=== PATIENT | female | born 1955 | race Caucasian/White ===

== ENCOUNTER 2018-11-12 00:58 | Outpatient (CLI) | payer MEDICARE, SELFPAY ==
--- NOTE | 2018-11-12 13:36 | DI.MAMMO_ITS ---
SYMPTOM/DIAGNOSIS: SCREENING, Z12.39 MAMMOGRAMS: Mammograms were interpreted according to the usual protocol including computer analysis with CAD system, tomosynthesis and C view imaging. No previous images were extant at the time of this interpretation. Requested but no images found. The breast tissue is heterogeneously radiodense which lowers the sensitivity of the study. There is no dominant mass. There are no suspicious calcifications. SUMMARY: No evidence of malignancy, category 1. Breast density, Category C. Routine screening mammography is recommended. [facility] ASSESSMENT OF FINDINGS: Negative. Category 1. Patient will receive a letter notifying them of these results. Bi-RADS category C. The breasts are heterogeneously dense, which may obscure small masses.
== END 2018-11-12 01:18 ==
PROVIDERS: PCP Nurse Practitioner Family; Visit Provider Nurse Practitioner Family
DX: Z12.31 Encounter for screening mammogram for malignant neoplasm of breast (principal)
CPT/HCPCS: 77063; 77067

== ENCOUNTER 2018-11-17 11:32 | Outpatient (REF) | payer MEDICARE, SELFPAY ==
[2018-11-17 12:12] LABS: Anion Gap 9.3 mmol/L (3-11); BUN 26 mg/dL (7-18); CO2 25.7 mmol/L (21.0-32.0); CREATININE 0.95 mg/dL (0.55-1.02); Calcium 9.5 mg/dL (8.5-10.1); Chloride 105 mmol/L (98-107); Estimated GFR 59.04 (mL/min/1.73m2); Glucose 142 mg/dL (70-100); Potassium 4.5 mmol/L (3.5-5.1); Sodium 140 mmol/L (136-145)
[2018-11-17 16:21] LABS: Calculated LDL 45 mg/dL; Cholesterol 126 mg/dL (50-200); HDL Cholesterol 34 mg/dL (40-60); Triglyceride 239 mg/dL (30-150)
== END 2018-11-17 11:52 ==
LOC: NCHCN 11:32
PROVIDERS: PCP Nurse Practitioner Family; Visit Provider Nurse Practitioner Family
DX: E78.5 Hyperlipidemia, unspecified (principal); I10 Essential (primary) hypertension; N18.9 Chronic kidney disease, unspecified
CPT/HCPCS: 80048; 80061

== ENCOUNTER → 2018-12-14 09:08 | Outpatient (BNVA) | payer MEDICARE, SELFPAY | PROVIDERS: PCP Nurse Practitioner Family; Referring Provider Nurse Practitioner Family; Visit Provider Nurse Practitioner Adult Health | DX: G43.009 Migraine without aura, not intractable, without status migrainosus (principal); I12.9 Hypertensive chronic kidney disease with stage 1 through stage 4 chronic kidney disease, or unspecified chronic kidney disease; E11.22 Type 2 diabetes mellitus with diabetic chronic kidney disease; N18.9 Chronic kidney disease, unspecified; Z79.84 Long term (current) use of oral hypoglycemic drugs | CPT/HCPCS: 99204 ==

== ENCOUNTER → 2019-01-11 12:56 | Outpatient (BNVA) | payer MEDICARE, SELFPAY | PROVIDERS: PCP Nurse Practitioner Family; Referring Provider Nurse Practitioner Family; Visit Provider Nurse Practitioner Adult Health | DX: G43.009 Migraine without aura, not intractable, without status migrainosus (principal); I10 Essential (primary) hypertension; J45.909 Unspecified asthma, uncomplicated | CPT/HCPCS: 99213 ==

== ENCOUNTER 2019-02-15 14:00 | Outpatient (REF) | payer MEDICARE, SELFPAY ==
[2019-02-15 19:48] LABS: HCT 40.1 % (36.0-46.0); HGB 13.2 g/dL (12.0-15.5); Mean Corp. HGB Concentration 32.9 g/dL (32.0-36.0); Mean Corpuscular Volume 91.1 fL (80-95); Mean Platelet Volume 11.4 fL (8.0-11.0); Platelet Count 316 x1000/uL (130-400); RBC Distribution Width 14.4 % (11.7-14.6); White Blood Cell Count 9.58 k/cumm (4.4-10.8)
[2019-02-15 20:06] LABS: ALT 27 U/L (14-59); AST 29 U/L (15-37); Albumin 4.2 g/dL (3.4-5.0); Alkaline Phosphatase 99 U/L (46-116); Anion Gap 15.2 mmol/L (3-11); BUN 25 mg/dL (7-18); Bilirubin, Total 0.5 mg/dL (0.2-1.0); CO2 22.8 mmol/L (21.0-32.0); CREATININE 1.03 mg/dL (0.55-1.02); Calcium 10.1 mg/dL (8.5-10.1); Chloride 102 mmol/L (98-107); Estimated GFR 53.78 (mL/min/1.73m2); Glucose 176 mg/dL (74-106); Potassium 4.5 mmol/L (3.5-5.1); Sodium 140 mmol/L (136-145); Total Protein 7.4 g/dL (6.4-8.2)
== END 2019-02-15 14:20 ==
LOC: NCHCN 14:00
PROVIDERS: PCP Nurse Practitioner Family; Visit Provider Nurse Practitioner
DX: R31.9 Hematuria, unspecified (principal)
CPT/HCPCS: 80053; 85027

== ENCOUNTER 2019-02-16 18:37 | Outpatient (REF) | payer MEDICARE, SELFPAY ==
[2019-02-16 19:18] LABS: Bilirubin Negative (Negative); Blood Large (Negative); Clarity Cloudy (Clear); Glucose Negative (Negative); Ketones Negative (Negative); Leukocyte Esterase Negative (Negative); Nitrite Negative (Negative); Urobilinogen 0.2 EU/dL (Up TO 0.2)
[2019-02-16 19:41] LABS: Bacteria Negative HPF (Negative); C & S Indicated? No; Epithelial Cells Negative HPF (Negative); Mucus Negative (Negative); WBC Negative HPF (0-5)
== END 2019-02-16 18:57 ==
LOC: NCHCN 18:37
PROVIDERS: PCP Nurse Practitioner Family; Visit Provider Nurse Practitioner Family
DX: R31.9 Hematuria, unspecified (principal)
CPT/HCPCS: 81003; 81015

== ENCOUNTER 2019-02-26 03:16 | Outpatient (CLI) | payer MEDICARE, SELFPAY ==
--- NOTE | 2019-02-26 12:43 | DI.US_ITS ---
EXAM: US RENAL CLINICAL HISTORY: HEMATURIA R31.9, HX RENAL CALCULUS Z87.442 TECHNIQUE: Ultrasound performed using standard protocol. COMPARISON: XR ABDOMEN FLAT PLATE from 02/26/2019 FINDINGS: Kidneys are normal in size and shape. There is no evidence of hydronephrosis. There is probable rig ht renal upper pole calculus which is nonobstructing. No left renal calcification seen. Urinary hermelinda dder is unremarkable in appearance and empties completely with voiding. Ureteral jets were not visua lized. IMPRESSION: Right upper pole nonobstructing renal calculus. Examination is otherwise unremarkable. Calculus luz ears to measure about 4-5 millimeters in diameter.
--- NOTE | 2019-02-26 13:14 | DI.RAD_ITS ---
EXAM: XR ABDOMEN FLAT PLATE CLINICAL HISTORY: HEMATURIA R31.9, HX RENAL CALCULUS Z87.442 TECHNIQUE: COMPARISON: No exams were available for comparison FINDINGS: Three views were obtained. No definite urinary tract calcifications seen. Bowel gas pattern is unre markable. No other specific abnormality. IMPRESSION:
== END 2019-02-26 03:36 ==
PROVIDERS: PCP Nurse Practitioner Family; Visit Provider Nurse Practitioner Family
DX: R31.9 Hematuria, unspecified (principal); Z87.442 Personal history of urinary calculi; N20.0 Calculus of kidney
CPT/HCPCS: 76770; 74018

== ENCOUNTER → 2019-04-14 10:56 | Outpatient (BNVA) | payer MEDICARE, SELFPAY | PROVIDERS: PCP Nurse Practitioner Family; Referring Provider Nurse Practitioner Family; Visit Provider Nurse Practitioner Adult Health | DX: G43.009 Migraine without aura, not intractable, without status migrainosus (principal) | CPT/HCPCS: 99213 ==

== ENCOUNTER 2019-10-15 08:17 | Day surgery (SDC) | payer MEDICARE, SELFPAY ==
[2019-10-15 08:25] VITALS: BP 156/66; PULSE 72; RESP 18; TEMP 36.4; O2SAT 98
[2019-10-15] MEDS: Lidocaine 1% Pres-Free 5 ML VIAL (09:39)
[2019-10-15] MEDS: Povidone-Iodine Ophth 30 ML BTL (09:39)
[2019-10-15] MEDS: Tetracaine 0.5% 4 ML BTL OS (09:39)
[2019-10-15] MEDS: Lidocaine 2% Jelly 6 ML SYR (09:39)
[2019-10-15] MEDS: Balanced Salt Soln.-PLUS 500 ML BAG (09:43)
[2019-10-15] MEDS: Moxifloxacin-PF 1 MG/ML VIAL (09:48)
--- NOTE | 2019-10-15 10:10 | W.PM.DSUDISC ---
Discharge Plan Disposition Patient Disposition: HOME Condition: Good Discharge Details Attending Provider: Shravan Russo Primary Care Provider: Shahla Poole Home Meds and New Rx's Prescriptions: No Action aspirin 325 mg tablet 325 mg PO DAILY PRNRF: 0 acetaminophen [Tylenol] 325 mg tablet 325 mg PO ONCE PRNRF: 0 Lantus U-100 Insulin 100 unit/mL solution 82 unit SC QHS RF: 0 amitriptyline 50 mg tablet 50 mg PO QHS Qty: 90 RF: 3 atorvastatin 40 mg tablet 40 mg PO DAILY RF: 0 cyclobenzaprine 10 mg tablet 10 mg PO HS RF: 0 citalopram 40 mg tablet 40 mg PO DAILY RF: 0 cholecalciferol (vitamin D3) 5,000 unit capsule 5,000 unit PO DAILY RF: 0 albuterol sulfate 90 mcg/actuation HFA aerosol inhaler 2 puff IH QID RF: 0 omeprazole 20 mg capsule,delayed release(DR/EC) 20 mg PO DAILY RF: 0 metformin 1,000 mg tablet 1,000 mg PO BID RF: 0 losartan 100 mg tablet 100 mg PO DAILY RF: 0 cetirizine 10 mg capsule 10 mg PO DAILY PRNRF: 0 bisoprolol fumarate 10 mg tablet 10 mg PO DAILY RF: 0 amlodipine 10 mg tablet 10 mg PO DAILY RF: 0 alendronate 70 mg tablet 70 mg PO QWEEK RF: 0 melatonin 5 mg tablet 5 mg PO HS PRNRF: 0 Discharge Instructions Stand Alone Forms: Post-op Topical Cataract, Shruthi Ganey (DSU) Discharge Orders Discharge Orders: Discharge Order (Routine); Ordered 10/15/19 Ordered By: Shravan Russo DS: Diagnosis Discharge Diagnosis (1) Papilloma of left eyelid: Status: Resolved (2) Nuclear sclerotic cataract of left eye: Status: Resolved
--- NOTE | 2019-10-15 10:11 | W.PM.OP ---
Date of service: 10/15/19 Time of Service: 10:11 Operative Note Operative Note DATE OF PROCEDURE: 10/15/19 PRE-OP DIAGNOSIS: Nuclear cataract, left eye; left lower lid papilloma x 3 POST-OP DIAGNOSIS: same PROCEDURE: Cataract extraction using phacoemulsification with intraocular lens implant, left eye SURGEON: Shravan Russo ANESTHESIA: MAC and local (sub-tenon's anesthetic infiltration) PATHOLOGY: none sent COMPLICATIONS: None Patient was transported to: same day Patient's condition: stable Implants: Nathanael and Nathanael Vision / [employer] Tecnis [id number] Indications: Progressive decreased vision due to cataract, left eye. Multiple left lower lid papillomas Procedure Description: CATARACT SURGERY OPERATIVE REPORT PREOPERATIVE DIAGNOSIS: 1. Nuclear cataract, left eye 2. Papilloma x3, left lower lid POSTOPERATIVE DIAGNOSIS: Same OPERATION: Cataract extraction using phacoemulsification with posterior chamber intraocular lens implant, left eye. Excision of multiple papillomas, left lower lid IOL: IOL Tentmaker/Model: [employer] Vision / MELVI Tecnis ZCB00 IOL Power: + 15.5 diopters IOL Serial Number: [id number] Optic Diameter: 6.0mm Haptic/Overall Diameter: 13.0mm PHACO INFO: Liborio Centurion Vision System with OZil and Active Fluidics Cumulative Dispersed Energy (CDE): 9.76 seconds SURGEON: Shravan Russo MD, SAM ANESTHESIA: Monitored Anesthesia Care (MAC), with local sub-tenon's anesthetic infiltration COMPLICATIONS: None SPECIMENS: None INDICATIONS FOR PROCEDURE: The patient is a 64-year-old lady with history of diminished visual acuity in her left eye. She is noted to have a significant nuclear cataract. The option of cataract surgery was offered to the patient and she wished to proceed. In addition, she has multiple papillomas involving the right lower lid and lateral canthus that she desires excision. They be have become very bothersome with pain and soreness. PROCEDURE: The correct surgical eye was identified and marked as the left eye and the pupil was dilated in the preoperative area using mydriatics and cycloplegics. The dilated pupil size was 6.5 mm. Oral sedation was administered in the form of an Imprimis MKO Melt (midazolam 3mg/ketamine 25mg/ondansetron 2mg). The patient was brought to the operating room where cardiopulmonary monitoring was instituted and surgical time-out was performed, confirming the correct operative eye and IOL power. 1 cc of 1% plain lidocaine was injected into the left lower lid and lateral canthus using a 30-gauge needle. Topical anesthesia was administered and ophthalmic povidone-iodine 5% was instilled into the conjunctival fornices. Lidocaine gel was applied to the cornea and the levi-ocular area was prepped with Betadine 10% solution and draped in the usual sterile fashion for intraocular surgery, including an aperture drape. A Tegaderm transparent film dressing was cut in half and used to cover the lashes and lid margins. Care was taken to sequester the lashes and lid margins under the Tegaderm dressing. A lid speculum was placed between the lids of the operative eye and the Soledad-Ina operating microscope was maneuvered into position. Walter scissors were then used to make a conjunctival buttonhole approximately 6mm posterior to the limbus in the inferonasal quadrant. Blunt dissection was carried out to expose bare sclera, and a blunt-tipped sub-tenon?s anesthesia cannula was introduced and passed posteriorly along the globe where non-preserved plain lidocaine was injected into posterior sub-Tenon?s space. A sideport knife was used to make a paracentesis port superior/superiortemporally. Intraocular phenylephrine/lidocaine was injected into the anterior chamber. The anterior chamber was then filled with Healon Pro. A 2.4mm keratome knife was used to create a half-thickness groove at the limbus and then to construct a three-plane near-clear corneal tunnel extending 2.0mm into clear cornea in the temporal position. . A flap was raised on the anterior capsule and capsulorhexis forceps were used to complete a continuous curvilinear capsulorhexis of 5.0 mm. Balanced salt solution was then used to perform cortical cleaving hydrodissection and nuclear hydrodelineation until the lens could be freely rotated within the capsular bag. The lens nucleus was then disassembled and removed within the capsular bag and iris plane using phacoemulsification. Residual cortical material was removed using the 45-degree angled silicone I/A tip with 0.3mm port. The posterior capsule was carefully polished to remove as much residual lens epithelial cells as safely possible. The capsular bag was then inflated and the anterior chamber deepened with viscoelastic. The lens implant described above was inserted into the capsular bag using the MELVI [place] Injector. A Kuglen hook was used to dial the IOL into position. Residual viscoelastic was then removed first from posterior to the IOL, then from the anterior chamber using the I/A handpiece. The lens implant was noted to center nicely within the capsular bag. The incisions were stromally hydrated, and the anterior chamber was reformed using BSS. Then 0.5cc of moxifloxacin 1.0mg/ml were injected into the capsular bag and anterior chamber. The incisions were checked with a Weck spear and found to be secure. Several drops of ophthalmic povidone-iodine 5% were then applied to the eye followed by two drops of Imprimis combination prednisolone/moxifloxacin/nepafenac solution. The drapes were removed. A #15 blade was used to outline the papillomas, which were then excised using forceps and Ni scissors. A total of 3 papillomas were removed, one centrally in the left lower lid, 1 laterally on the left lower leg, and 1 at the left lateral canthus. All were approximately 2 to 3 mm in size. A gauze pad was applied. And a clear plastic protective eye shield was placed over the eye. The patient was then returned to Same Day Surgery in stable condition.
[2019-10-15 10:36] VITALS: BP 115/50; PULSE 77; RESP 16; TEMP 35.8; O2SAT 93
== END 2019-10-15 10:59 | disposition home or self-care (01) ==
PROVIDERS: PCP Nurse Practitioner Family; Visit Provider Ophthalmology
PROC: (CPT 66984; principal; 2019-10-15 10:30)
DX: H25.12 Age-related nuclear cataract, left eye (principal); D23.122 Other benign neoplasm of skin of left lower eyelid, including canthus
CPT/HCPCS: 66984; 67840 ×3; V2632

== ENCOUNTER 2019-10-29 08:21 | Day surgery (SDC) | payer MEDICARE, SELFPAY ==
[2019-10-29 08:25] VITALS: BP 149/60; PULSE 76; RESP 16; TEMP 36.6; O2SAT 98
--- NOTE | 2019-10-29 08:46 | W.PM.DSUDISC ---
Discharge Plan Disposition Patient Disposition: HOME Condition: Good Discharge Details Attending Provider: Shravan Russo Primary Care Provider: Shahla Poole Home Meds and New Rx's Prescriptions: No Action aspirin 325 mg tablet 325 mg PO DAILY PRNRF: 0 acetaminophen [Tylenol] 325 mg tablet 325 mg PO ONCE PRNRF: 0 Lantus U-100 Insulin 100 unit/mL solution 82 unit SC QHS RF: 0 amitriptyline 50 mg tablet 50 mg PO QHS Qty: 90 RF: 3 atorvastatin 40 mg tablet 40 mg PO DAILY RF: 0 cyclobenzaprine 10 mg tablet 10 mg PO HS RF: 0 citalopram 40 mg tablet 40 mg PO DAILY RF: 0 cholecalciferol (vitamin D3) 5,000 unit capsule 5,000 unit PO DAILY RF: 0 albuterol sulfate 90 mcg/actuation HFA aerosol inhaler 2 puff IH QID RF: 0 omeprazole 20 mg capsule,delayed release(DR/EC) 20 mg PO DAILY RF: 0 metformin 1,000 mg tablet 1,000 mg PO BID RF: 0 losartan 100 mg tablet 100 mg PO DAILY RF: 0 cetirizine 10 mg capsule 10 mg PO DAILY PRNRF: 0 bisoprolol fumarate 10 mg tablet 10 mg PO DAILY RF: 0 amlodipine 10 mg tablet 10 mg PO DAILY RF: 0 alendronate 70 mg tablet 70 mg PO QWEEK RF: 0 melatonin 5 mg tablet 5 mg PO HS PRNRF: 0 Discharge Instructions Stand Alone Forms: Post-op Topical Cataract, Shruthi Giordanoey (DSU) Discharge Orders Discharge Orders: Discharge Order (Routine); Ordered 10/29/19 Ordered By: Shravan Russo DS: Diagnosis Discharge Diagnosis (1) Nuclear sclerotic cataract of right eye: Status: Resolved
[2019-10-29] MEDS: Tetracaine 0.5% 4 ML BTL OD (09:39)
[2019-10-29] MEDS: Balanced Salt Soln.-PLUS 500 ML BAG (09:40)
[2019-10-29] MEDS: Lidocaine 2% Jelly 6 ML SYR (09:41)
[2019-10-29] MEDS: Moxifloxacin-PF 1 MG/ML VIAL (09:41)
[2019-10-29] MEDS: Lidocaine 1% Pres-Free 5 ML VIAL (09:41)
[2019-10-29] MEDS: Povidone-Iodine Ophth 30 ML BTL (09:42)
--- NOTE | 2019-10-29 10:03 | W.PM.OP ---
Date of service: 10/29/19 Time of Service: 10:03 Operative Note Operative Note DATE OF PROCEDURE: 10/29/19 PRE-OP DIAGNOSIS: Nuclear cataract, right eye POST-OP DIAGNOSIS: same PROCEDURE: Cataract extraction using phacoemulsification with intraocular lens implant, right eye SURGEON: Shravan Russo ANESTHESIA: MAC and local (sub-tenon's anesthetic infiltration) ESTIMATED BLOOD LOSS: 0 PATHOLOGY: none sent COMPLICATIONS: None Patient was transported to: same day Patient's condition: stable Implants: Nathanael and Nathanael Vision / [employer] Tecnis ZCB00 intraocular lens Indications: Progressive decreased vision due to cataract, right eye Procedure Description: CATARACT SURGERY OPERATIVE REPORT PREOPERATIVE DIAGNOSIS: Nuclear cataract, right eye POSTOPERATIVE DIAGNOSIS: Same OPERATION: Cataract extraction using phacoemulsification with posterior chamber intraocular lens implant, right eye. IOL: IOL Housecalls Nurse/Model: J&J Vision / MELVI Tecnis ZCB00 IOL Power: + 16.0 diopters IOL Serial Number: [id number] Optic Diameter: 6.0mm Haptic/Overall Diameter: 13.0mm PHACO INFO: Liborio [employer]urion Vision System with OZil and Active Fluidics Cumulative Dispersed Energy (CDE): 10.70 seconds SURGEON: Shravan Russo MD, SAM ANESTHESIA: Monitored Anesthesia Care (MAC), with local sub-tenon's anesthetic infiltration COMPLICATIONS: None SPECIMENS: None INDICATIONS FOR PROCEDURE: The patient is a 64-year-old lady with history of diminished visual acuity in both eyes secondary to the development of bilateral nuclear cataract. She has already undergone cataract surgery in her left eye and is doing well postoperatively. She now presents for cataract surgery in the right eye. PROCEDURE: The correct surgical eye was identified and marked as the right eye and the pupil was dilated in the preoperative area using mydriatics and cycloplegics. The dilated pupil size was 7.0 mm. Oral sedation was administered in the form of an Imprimis MKO Melt (midazolam 3mg/ketamine 25mg/ondansetron 2mg). The patient was brought to the operating room where cardiopulmonary monitoring was instituted and surgical time-out was performed, confirming the correct operative eye and IOL power. Topical anesthesia was administered and ophthalmic povidone-iodine 5% was instilled into the conjunctival fornices. Lidocaine gel was applied to the cornea and the levi-ocular area was prepped with Betadine 10% solution and draped in the usual sterile fashion for intraocular surgery, including an aperture drape. A Tegaderm transparent film dressing was cut in half and used to cover the lashes and lid margins. Care was taken to sequester the lashes and lid margins under the Tegaderm dressing. A lid speculum was placed between the lids of the operative eye and the Soledad-Ina operating microscope was maneuvered into position. Walter scissors were then used to make a conjunctival buttonhole approximately 6mm posterior to the limbus in the inferonasal quadrant. Blunt dissection was carried out to expose bare sclera, and a blunt-tipped sub-tenon?s anesthesia cannula was introduced and passed posteriorly along the globe where non-preserved plain lidocaine was injected into posterior sub-Tenon?s space. A sideport knife was used to make a paracentesis port inferiortemporally. Intraocular phenylephrine/lidocaine was injected into the anterior chamber. The anterior chamber was then filled with Healon Pro. A 2.4mm keratome knife was used to create a half-thickness groove at the limbus and then to construct a three-plane near-clear corneal tunnel extending 2.0mm into clear cornea in the superiortemporal position. . A flap was raised on the anterior capsule and capsulorhexis forceps were used to complete a continuous curvilinear capsulorhexis of 5.0 mm. Balanced salt solution was then used to perform cortical cleaving hydrodissection and nuclear hydrodelineation until the lens could be freely rotated within the capsular bag. The lens nucleus was then disassembled and removed within the capsular bag and iris plane using phacoemulsification. Residual cortical material was removed using the I/A handpiece. The posterior capsule was carefully polished to remove as much residual lens epithelial cells as safely possible. The capsular bag was then inflated and the anterior chamber deepened with viscoelastic. The lens implant described above was inserted into the capsular bag using the MELVI [place] Injector. A Kuglen hook was used to dial the IOL into position. Residual viscoelastic was then removed first from posterior to the IOL, then from the anterior chamber using the I/A handpiece. The lens implant was noted to center nicely within the capsular bag. The incisions were stromally hydrated, and the anterior chamber was reformed using BSS. Then 0.5cc of moxifloxacin 1.0mg/ml were injected into the capsular bag and anterior chamber. The incisions were checked with a Weck spear and found to be secure. Several drops of ophthalmic povidone-iodine 5% were then applied to the eye followed by two drops of Imprimis combination prednisolone/moxifloxacin/nepafenac solution. The drapes were removed and a clear plastic protective eye shield was placed over the eye. The patient was then returned to Same Day Surgery in stable condition.
[2019-10-29 10:20] VITALS: BP 149/70; PULSE 73; RESP 18; TEMP 36.1; O2SAT 99
== END 2019-10-29 10:35 | disposition home or self-care (01) ==
PROVIDERS: PCP Nurse Practitioner Family; Visit Provider Ophthalmology
PROC: (CPT 66984; principal; 2019-10-29 10:30)
DX: H25.11 Age-related nuclear cataract, right eye (principal); Z96.1 Presence of intraocular lens; Z98.42 Cataract extraction status, left eye
CPT/HCPCS: 66984; V2632

== ENCOUNTER 2020-01-05 13:09 | Outpatient (REF) | payer MEDICARE, SELFPAY ==
[2020-01-05 19:46] LABS: Anion Gap 12.4 mmol/L (3-11); BUN 17 mg/dL (7-18); CO2 22.6 mmol/L (21.0-32.0); Calcium 9.6 mg/dL (8.5-10.1); Chloride 104 mmol/L (98-107); Estimated GFR 49.69 (mL/min/1.73m2); Glucose 233 mg/dL (74-106); Potassium 4.3 mmol/L (3.5-5.1); Sodium 139 mmol/L (136-145)
== END 2020-01-05 13:29 ==
LOC: NCHCN 13:09
PROVIDERS: PCP Nurse Practitioner Family; Visit Provider Nurse Practitioner Family
DX: N18.9 Chronic kidney disease, unspecified (principal)
CPT/HCPCS: 80048

== ENCOUNTER → 2020-04-12 12:58 | Outpatient (BNVA) | payer MEDICARE, SELFPAY | PROVIDERS: PCP Nurse Practitioner Family; Referring Provider Nurse Practitioner Family; Visit Provider Nurse Practitioner Adult Health | DX: G43.009 Migraine without aura, not intractable, without status migrainosus (principal); G89.29 Other chronic pain; G62.9 Polyneuropathy, unspecified | CPT/HCPCS: 99213 ==

== ENCOUNTER 2021-01-18 10:18 | Outpatient (REF) | payer MEDICARE, SELFPAY ==
[2021-01-18 17:03] LABS: Hemoglobin A1C 8.8 % (<5.7)
[2021-01-18 17:07] LABS: ALT 29 U/L (14-59); AST 24 U/L (15-37); Albumin 4.1 g/dL (3.4-5.0); Alkaline Phosphatase 123 U/L (46-116); BUN 29 mg/dL (7-18); Bilirubin, Total 0.5 mg/dL (0.2-1.0); CREATININE 1.1 mg/dL (0.55-1.02); Chloride 101 mmol/L (98-107); Cholesterol 145 mg/dL (<200); Estimated GFR 49.54 (mL/min/1.73m2); Glucose 257 mg/dL (74-106); HDL Cholesterol 33 mg/dL (40-60); Potassium 4.5 mmol/L (3.5-5.1); Sodium 137 mmol/L (136-145); Total Protein 7.4 g/dL (6.4-8.2); Triglyceride 454 mg/dL (<150)
[2021-01-18 17:37] LABS: COMMENT (LAB VIEW ONLY) 142.55 mg/dL
[2021-01-18 17:53] LABS: Microalb ug/mg Crea 103.1 ug/mg Cr
[2021-01-18 18:08] LABS: LDL CHOLESTEROL 55 mg/dL (<100)
== END 2021-01-18 10:19 | disposition home or self-care (01) ==
LOC: NCHCN 10:18
PROVIDERS: PCP Nurse Practitioner Family; Visit Provider Nurse Practitioner
DX: I10 Essential (primary) hypertension (principal); N18.9 Chronic kidney disease, unspecified; E11.9 Type 2 diabetes mellitus without complications; E78.5 Hyperlipidemia, unspecified
CPT/HCPCS: 80053; 80061; 83721; 82043; 82570; 83036

== ENCOUNTER → 2021-05-07 03:21 | Outpatient (CLI) | payer MEDICARE, SELFPAY ==
--- OUTSIDE RECORDS SUMMARY | 2021-01-29 00:35 | XMS_ITS ---
:1955 Author Care Team Providers Name Role Phone TAI MARKY DIAZ Primary Care Provider [phone] CHRISTIANNE SOMMERS MD Neurologist [phone] Allergies Code Code System Name Reaction Severity Status Onset 1418 RxNorm Benzoyl Peroxide ? ? Active ? 1951 RxNorm Camphor ? ? Active ? [place] ? ? Active ? 8703 RxNorm Fenofibrate ? ? Active ? [id number] RxNorm Nickel ? ? Active ? 7999702 RxNorm Raspberry ? ? Active ? 27558 RxNorm Trolamine ? ? Active ? Salicylate Medications Name Status Start Date Stop Date ? ? acetaminophen 325 mg capsule Active ? Not available Take 2 capsules as needed by oral route. albuterol 90 mcg/actuation aerosol inhaler Active ? Not available Inhale 1 puff as needed by inhalation route. amitriptyline 50 mg tablet Active ? Not a vailable Take 1 tablet every day by oral route. amlodipine 10 mg-atorvastatin 10 mg tablet Active ? Not available Take 1 tablet every day by oral route. aspirin 325 mg tablet Completed ? 03/22/2019 Take 1 tablet every day by oral route. atorvastatin 40 mg tablet Active ? Not av ailable Take 1 tablet every day by oral route. bisoprolol fumarate 10 mg tablet Active ? Not available Take 1 tablet every day by oral route. cetirizine 10 mg capsule Active ? Not sandra ilable Take 1 capsule as needed by oral route. cholecalciferol (vit D3) 5,500 unit-vit K2 200 mcg tablet Comple bassam ? 03/22/2019 Take by oral route. citalopram 40 mg tablet Active ? Not avai lable Take 1 tablet every day by oral route. cyclobenzaprine 10 mg tablet Completed ? Take 1 tablet as needed by oral route. Lantus Solostar U-100 Insulin Active ? No t available 80 units nightly losartan 100 mg tablet Active ? Not avail able Take 1 tablet every day by oral route. metformin 1,000 mg tablet Active ? Not av ailable Take 1 tablet twice a day by oral route. omeprazole 20 mg capsule,delayed release Active ? Not available Take 1 capsule as needed by oral route. zolpidem 5 mg tablet Completed ? 04/22/2019 take 1-2 PO night of sleep study Problems Name Status Onset Date Source ? Diabetes Mellitus Active 02/25/2019 ? Hyperlipidemia Active 02/25/2019 ? Iron Deficiency Active 02/25/2019 ? Depressive Disorder Active 02/25/2019 ? Migraine Active 02/25/2019 ? Cataract Active 02/25/2019 ? Hypertensive Disorder Active 02/25/2019 ? Atherosclerosis Active 02/25/2019 ? Asthma Active 02/25/2019 ? Chronic Kidney Disease Active 02/25/2019 ? Chronic Low Back Pain Active 02/25/2019 ? Osteopenia Active 02/25/2019 ? Peripheral Vasoconstriction Active 02/25/2019 ? Insomnia Active 03/22/2019 ? Snoring Active 03/22/2019 ? Cramp in Lower Limb Associated with Sleep Active 2019 ? 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 Obstructive Sleep Apnea Syndrome Active ? ? Procedures Date Name Performed by ? 03/22/2019 Polysomnogram Information not avai lable Results Lab Results None recorded. Past Encounters 12/21/2020 Annette Castillo [employer] CHIEF: [address] [place] [phone], Ph. 12/22/2019 Obstructive Sleep Apnea Syndrome Annette Castillo [employer] CHIEF: [address] [place] [phone], Ph. 08/19/2019 Obstructive Sleep Apnea Syndrome Annette Castillo [employer] CHIEF: [address] [place] [phone], Ph. Social History Tobacco Smoking Status Never Smoker Vaccine List None recorded. Plan of Care Reminders Provider Appointments None ? ? recorded. Lab None ? ? recorded. Referral None ? ? recorded. Procedures None ? ? recorded. Surgeries None ? ? recorded. Imaging None ? ? recorded. Vitals 12/22/2019 02:30PM Office 30 Height Weight BMI Blood Pressure 165.1 cm 91.17 kg 33.4 kg/m2 172/82 mm[Hg] 08/19/2019 08:30AM Office 30 Height Weight BMI Blood Pressure 165.1 cm 92.08 kg 33.8 kg/m2 132/60 mm[Hg] 04/22/2019 09:00AM Office 30 Height Weight BMI Blood Pressure 165.1 cm 93.71 kg 34.4 kg/m2 140/60 mm[Hg] 03/22/2019 10:15AM New Patient 43 Height Weight BMI Blood Pressure 165.1 cm 92.62 kg 34 kg/m2 120/58 mm[Hg]
== END ==
PROVIDERS: PCP Nurse Practitioner Family; Visit Provider Nurse Practitioner

== ENCOUNTER 2021-10-25 15:53 | Outpatient (REF) | payer MEDICARE, SELFPAY ==
[2021-10-25 19:38] LABS: Anion Gap 14.7 mmol/L (3-11); BUN 32 mg/dL (7-18); CO2 21.3 mmol/L (21.0-32.0); CREATININE 1.6 mg/dL (0.55-1.02); Calcium 9.6 mg/dL (8.5-10.1); Chloride 103 mmol/L (98-107); Estimated GFR 32.05 (mL/min/1.73m2); Glucose 213 mg/dL (74-106); Potassium 4.4 mmol/L (3.5-5.1); Sodium 139 mmol/L (136-145)
== END 2021-10-25 15:54 | disposition home or self-care (01) ==
LOC: NCHCN 15:53
PROVIDERS: PCP Nurse Practitioner Family; Visit Provider Nurse Practitioner Family
DX: E11.9 Type 2 diabetes mellitus without complications (principal); N18.9 Chronic kidney disease, unspecified
CPT/HCPCS: 80048

== ENCOUNTER 2022-01-29 15:49 | Outpatient (REF) | payer MEDICARE, SELFPAY ==
[2022-01-29 19:47] LABS: COMMENT (LAB VIEW ONLY) 73.69 mg/dL; Microalb ug/mg Crea 217.4 ug/mg Cr
== END 2022-01-29 15:50 | disposition home or self-care (01) ==
LOC: NCHCN 15:49
PROVIDERS: PCP Nurse Practitioner Family; Visit Provider Nurse Practitioner Family
DX: E11.9 Type 2 diabetes mellitus without complications (principal)
CPT/HCPCS: 82043; 82570

== ENCOUNTER 2022-03-23 04:37 | Inpatient (IN) | payer MEDICARE, SELFPAY ==
[2022-03-23] VITALS (94 sets, daily range): BP systolic 99–157; BP diastolic 30–108; PULSE 83–110; RESP 16–37; TEMP 36.7–37.7; O2SAT 91–99
--- NOTE | 2022-03-23 04:30 | RT.EKG_ITS ---
APPROVED REPORT Exam: Resting ECG Reason for Exam: chest pain Patient Location: E HR:87 bpm ECG Measurements Heart Rate 87 AXIS WV 144 P 68 QRSd 146 QRS 4 QT 420 T 85 QTc 506 Conclusion Incomplete analysis due to missing data in precordial lead(s) Sinus rhythm...normal P axis, V-rate 60- 99 Right bundle branch block...QRSd>120, terminal axis(90,270). MIssing lead. RBBB. No STEMI. I have reviewed and interpreted ECG and agree with software generated interpretation.
--- NOTE | 2022-03-23 04:45 | RT.EKG_ITS ---
APPROVED REPORT Exam: Resting ECG Reason for Exam: chest pain Patient Location: E HR:85 bpm ECG Measurements Heart Rate [address] 141 P 72 QRSd 142 QRS 3 QT 418 T 96 QTc 497 Conclusion Sinus rhythm...normal P axis, V-rate 60- 99 Right bundle branch block...QRSd>120, terminal axis(90,270). Sinus. RBBB. No STEMI. I have reviewed and interpreted ECG and agree with software generated interpretation.
[2022-03-23 05:05] LABS: Abs Immature Grans 0.05 10^3/uL (0.0-0.06); Absolute Basophil Count 0.04 10^3/uL (0.0-0.2); Absolute Eosinophil Count 0.17 10^3/uL (0.0-0.7); Absolute Lymphocyte Count 0.85 10^3/uL (1.2-3.4); Absolute Monocyte Count 0.15 10^3/uL (0.1-0.8); Basophils % 0.3; Eosinophils % 1.4; HCT 35.2 % (36.0-46.0); HGB 11.3 g/dL (11.2-15.7); Immature Grans % 0.4; Lymphocytes % 7.2; MCH 29.4 pg (27.0-33.0); MCHC 32.1 % (32.0-36.0); MCV 92 fL (80-95); MPV 11.1 fL (8.0-11.0); Monocytes % 1.3; Neutrophils % 89.4; Platelet Count 265 10^3/uL (130-400); RBC 3.84 10^6/uL (3.93-5.22); RDW 14.4 % (11.7-14.6); RDW-SD 48.1 fL; WBC 11.82 10^3/uL (4.4-10.8)
--- NOTE | 2022-03-23 05:07 | ED.GENADUL_ITS ---
Discharge Plan Disposition Patient Disposition: Admit to [facility] Condition: Stable Discharge Details Clinical Impression: Abdominal pain, Cholecystitis Admit Date/Time: 03/23/22 09:47 Admit Provider: Get Murillo Attending Provider: Get Murillo Primary Care Provider: Shahla Poole ED Provider: Matt Rodriguez Discharge Data Discharge Date/Time-TO BE ENTERED AT DEPARTURE: 03/23/22 13:47 Medical Decision Making <Leola Burnett DO - Last Filed: 03/23/22 22:08> 0445 -- 66-year-old female with a history of hypertension, hyperlipidemia, diabetes, chronic kidney disease, migraines, GERD who presents for upper abdominal pain, diarrhea, chest pain and vomiting since last night. She states her upper abdominal pain resolved after the diarrhea. She states her chest pain resolved after the vomiting here in the ED. EKG notes a rate of 85, sinus, right bundle branch block, no STEMI nondiagnostic. Her blood pressure is moderately hypertensive but the remainder of vitals are within normal limits. Her abdomen is soft and nontender. Differential diagnosis includes GERD, gastritis, PUD, cholelithiasis, cholecystitis. History and presentation appears less likely consistent with ACS, PE or dissection. Considering her age and history, will obtain screening labs, CT chest abdomen and pelvis and give IV Zofran, IV Pepcid, GI cocktail and Carafate and reassess. 0530 -- labs reviewed. White blood cell count 11.82. Bicarb 20.2. Anion gap 12.8. Creatinine slightly elevated compared to baseline at 1.7. Glucose 404. T bili slightly elevated at 1.3. Troponin negative. Lipase within normal limits. Magnesium low at 0.9, will replete. 0700 --patient reassessed and she remains symptom-free. CT still pending. Patient is agreeable with plan for repeat troponin EKG at 8 AM. We will plan for repeat magnesium after magnesium repletion finishes at 10 AM. We will also check repeat BMP after IV fluids to assess for normalization of bicarb and anion gap. 0750 -- CT chest/abdomen/pelvis notes: IMPRESSION: 1. There is no evidence of pulmonary embolus in the visualized large central and segmental pulmonary artery branches. Motion artifact and technical factors limit evaluation of the smaller peripheral branches. 2. Mild peripheral vascular disease without aortic aneurysm or dissection. 3. Findings consistent with bronchitis/pneumonitis, likely infectious or inflammatory. 4. Wall thickening of multiple bowel loops consistent with infectious or inflammatory enteritis. Underdistension may present a similar picture. 5. Cholelithiasis with borderline thickening of the gallbladder wall. If there is clinical suspicion for acute cholecystitis, consider correlation with right upper quadrant ultrasound. Discussed with radiology and they are able to perform a gallbladder ultrasound this morning. 0800 --Case endorsed to Dr. Rodriguez to follow-up on gallbladder ultrasound and discuss with surgery and to follow-up on repeat troponin, EKG, BMP and magnesium. 0945 pt stable, states she feels better though is tender with palpation tot he ruq. U/s does show gallstone and thickened gallbladder, minimally elevated wbc, ast and alk phos. Concern for cholecystitis, zofran ordered, discussed with surgeon who accepts for admission Medical Records Medical records reviewed: Yes I reviewed the patient's medical records. Imaging Data Radiologic Study: Radiologist's impression: CTA Chest With Contrast CTA Abdomen With Contrast Exam date and time: 03/23/2022 5:58 AM Age: 66 years old Clinical indication: Other: Chest and upper abd pain, vomiting; Abdominal pain; Localized; Additional info: R/O gastritis, cholecystitis, pe TECHNIQUE: Imaging protocol: Computed tomographic angiography of the chest with contrast. Computed tomographic angiography of the abdomen with contrast. 3D rendering (Not supervised by radiologist): MIP and/or 3D reconstructed images were created by the technologist. Radiation optimization: All CT scans at this facility use at least one of these dose optimization techniques: automated exposure control; mA and/or kV adjustment per patient size (includes targeted exams where dose is matched to clinical indication); or iterative reconstruction. Contrast material: OMNI 350; Contrast volume: 100 ml; Contrast route: INTRAVENOUS (IV);? COMPARISON: CR XR ABDOMEN FLAT PLATE 02/26/2019 1:14 PM FINDINGS: Limitations: Motion artifact limits evaluation. VASCULATURE: Pulmonary arteries: There is no evidence of pulmonary embolus in the large central and segmental pulmonary arteries. Evaluation of the smaller peripheral branches is limited by motion artifact and technical factors. Aorta: There are scattered atherosclerotic plaques throughout the thoracic aorta, abdominal aorta and their branches without evidence of aneurysm or dissection. Celiac trunk and mesenteric arteries: There is a small plaque at the origin of the celiac trunk with minimal stenosis. The SMA is widely patent. There is a mild stenosis at the origin of the QASIM. Renal arteries: The right and left main renal arteries show no hemodynamically significant stenosis. Right iliac arteries: Scattered atherosclerotic plaques throughout the right iliac and visualized common femoral arteries without a hemodynamically significant stenosis. There is moderate diffuse disease of the right internal iliac artery. Left iliac arteries: Scattered atherosclerotic plaques throughout the left iliac and visualized common femoral arteries without a hemodynamically significant stenosis. There is moderate diffuse disease of the left internal iliac artery. CHEST: Lungs: There are mild bilateral dependent atelectatic changes of the lower lobes. There is no evidence of focal pulmonary consolidation. There is peribronchial thickening consistent with bronchial wall inflammatory changes as seen in bronchitis/pneumonitis. Pleural spaces: Unremarkable. No pneumothorax. No pleural effusion. Heart: Unremarkable. No cardiomegaly. No pericardial effusion. Diaphragm: There is a small sliding hiatal hernia. ABDOMEN AND PELVIS: Liver: There is mild hepatomegaly. There are no enhancing liver masses. Gallbladder and bile ducts: There are small calcified gallstones. There is no pericholecystic fluid. However, the gallbladder wall is borderline in thickness. Pancreas: Unremarkable. No mass. No ductal dilation. Spleen: Unremarkable. No splenomegaly. Adrenal glands: Unremarkable. No mass. Kidneys and ureters: Unremarkable. No solid mass. No hydronephrosis. Stomach and bowel: There are multiple, small bowel loops with thickened ashby consistent with enteritis (axial series 12, image 68; coronal 13, image 44). Intraperitoneal space: Unremarkable. No free air. No significant fluid collection. Lymph nodes: Unremarkable. No enlarged lymph nodes. Bones/joints: Unremarkable. No acute fracture. Soft tissues: Unremarkable. IMPRESSION: 1. There is no evidence of pulmonary embolus in the visualized large central and segmental pulmonary artery branches. Motion artifact and technical factors limit evaluation of the smaller peripheral branches. 2. Mild peripheral vascular disease without aortic aneurysm or dissection. 3. Findings consistent with bronchitis/pneumonitis, likely infectious or inflammatory. 4. Wall thickening of multiple bowel loops consistent with infectious or inflammatory enteritis. Underdistension may present a similar picture. 5. Cholelithiasis with borderline thickening of the gallbladder wall. If there is clinical suspicion for acute cholecystitis, consider correlation with right upper quadrant ultrasound. Lab Data Lab results reviewed: Yes I reviewed the patient's lab results. Labs: Laboratory Tests Range/Units 03/23/22 03/23/22 03/23/22 05:00 05:00 08:10 WBC (4.4-10.8) 10^3/uL 11.82 H RBC (3.93-5.22) 10^6/uL 3.84 L Hgb (11.2-15.7) g/dL 11.3 Hct (36.0-46.0) % 35.2 L MCV (80-95) fL 92 MCH (27.0-33.0) pg 29.4 MCHC (32.0-36.0) % 32.1 RDW (11.7-14.6) % 14.4 Plt Count (130-400) 10^3/uL 265 MPV (8.0-11.0) fL 11.1 H Immature Gran % 0.4 Neutrophils % 89.4 Lymphocytes % 7.2 Monocytes % 1.3 Eosinophils % 1.4 Basophils % 0.3 Nucleated RBC % (0.0-0.3) % 0.0 Absolute Neutrophils (1.2-6.7) 10^3/uL 10.57 H Absolute Lymphocytes (1.2-3.4) 10^3/uL 0.85 L Absolute Monocytes (0.1-0.8) 10^3/uL 0.15 Absolute Eosinophils (0.0-0.7) 10^3/uL 0.17 Absolute Basophils (0.0-0.2) 10^3/uL 0.04 VBG pH (7.31-7.41) VBG pCO2 (41-51) mmHg VBG pO2 mmHg VBG HCO3 (23-28) mmol/L VBG Total CO2 (24-29) mmol/L VBG O2 Saturation % VBG Base Excess (-2-3) mmol/L Sodium (136-145) mmol/L 134 L Potassium (3.5-5.1) mmol/L 4.7 Chloride (98-107) mmol/L 101 Carbon Dioxide (21.0-32.0) mmol/L 20.2 L Anion Gap (3-11) mmol/L 12.8 H BUN (7-18) mg/dL 37 H Creatinine (0.55-1.02) mg/dL 1.7 H Est GFR (CKD-EPI 2020) (mL/min/1.73m2) 32.46 Glucose (74-106) mg/dL 404 H Calcium (8.5-10.1) mg/dL 9.5 Magnesium (1.8-2.4) mg/dL 0.9 L Total Bilirubin (0.2-1.0) mg/dL 1.3 H AST (15-37) U/L 104 H ALT (14-59) U/L 58 Alkaline Phosphatase (46-116) U/L 139 H Troponin I (<or=60) ng/L < 50 Total Protein (6.4-8.2) g/dL 7.5 Albumin (3.4-5.0) g/dL 3.8 Lipase (73-393) U/L 143 Urine Color (Yellow) Yellow Urine Clarity (Clear) Clear Urine pH (5-8) 5.0 Ur Specific [place] (1.005-1.025) 1.015 Urine Protein (Negative) mg/dL Negative Urine Ketones (Negative) mg/dL Negative Urine Blood (Negative) Negative Urine Nitrite (Negative) Negative Urine Bilirubin (Negative) Negative Urine Urobilinogen (Up TO 0.2) EU/dL 0.2 Ur Leukocyte Esterase (Negative) Negative Urine Glucose (Negative) mg/dL 500 H Range/Units 03/23/22 03/23/22 03/23/22 08:13 08:13 08:13 WBC (4.4-10.8) 10^3/uL RBC (3.93-5.22) 10^6/uL Hgb (11.2-15.7) g/dL Hct (36.0-46.0) % MCV (80-95) fL MCH (27.0-33.0) pg MCHC (32.0-36.0) % RDW (11.7-14.6) % Plt Count (130-400) 10^3/uL MPV (8.0-11.0) fL Immature Gran % Neutrophils % Lymphocytes % Monocytes % Eosinophils % Basophils % Nucleated RBC % (0.0-0.3) % Absolute Neutrophils (1.2-6.7) 10^3/uL Absolute Lymphocytes (1.2-3.4) 10^3/uL Absolute Monocytes (0.1-0.8) 10^3/uL Absolute Eosinophils (0.0-0.7) 10^3/uL Absolute Basophils (0.0-0.2) 10^3/uL VBG pH (7.31-7.41) VBG pCO2 (41-51) mmHg VBG pO2 mmHg VBG HCO3 (23-28) mmol/L VBG Total CO2 (24-29) mmol/L VBG O2 Saturation % VBG Base Excess (-2-3) mmol/L Sodium (136-145) mmol/L 134 L Potassium (3.5-5.1) mmol/L 4.3 Chloride (98-107) mmol/L 103 Carbon Dioxide (21.0-32.0) mmol/L 17.1 L Anion Gap (3-11) mmol/L 13.9 H BUN (7-18) mg/dL 35 H Creatinine (0.55-1.02) mg/dL 1.6 H Est GFR (CKD-EPI 2020) (mL/min/1.73m2) 34.91 Glucose (74-106) mg/dL 350 H Calcium (8.5-10.1) mg/dL 9.2 Magnesium (1.8-2.4) mg/dL 2.0 Cancelled Total Bilirubin (0.2-1.0) mg/dL AST (15-37) U/L ALT (14-59) U/L Alkaline Phosphatase (46-116) U/L Troponin I (<or=60) ng/L < 50 Total Protein (6.4-8.2) g/dL Albumin (3.4-5.0) g/dL Lipase (73-393) U/L Urine Color (Yellow) Urine Clarity (Clear) Urine pH (5-8) Ur Specific [place] (1.005-1.025) Urine Protein (Negative) mg/dL Urine Ketones (Negative) mg/dL Urine Blood (Negative) Urine Nitrite (Negative) Urine Bilirubin (Negative) Urine Urobilinogen (Up TO 0.2) EU/dL Ur Leukocyte Esterase (Negative) Urine Glucose (Negative) mg/dL Range/Units 03/23/22 08:13 WBC (4.4-10.8) 10^3/uL RBC (3.93-5.22) 10^6/uL Hgb (11.2-15.7) g/dL Hct (36.0-46.0) % MCV (80-95) fL MCH (27.0-33.0) pg MCHC (32.0-36.0) % RDW (11.7-14.6) % Plt Count (130-400) 10^3/uL MPV (8.0-11.0) fL Immature Gran % Neutrophils % Lymphocytes % Monocytes % Eosinophils % Basophils % Nucleated RBC % (0.0-0.3) % Absolute Neutrophils (1.2-6.7) 10^3/uL Absolute Lymphocytes (1.2-3.4) 10^3/uL Absolute Monocytes (0.1-0.8) 10^3/uL Absolute Eosinophils (0.0-0.7) 10^3/uL Absolute Basophils (0.0-0.2) 10^3/uL VBG pH (7.31-7.41) 7.27 L VBG pCO2 (41-51) mmHg 34 L VBG pO2 mmHg 35 VBG HCO3 (23-28) mmol/L 16 L VBG Total CO2 (24-29) mmol/L 15 L VBG O2 Saturation % 59 VBG Base Excess (-2-3) mmol/L -11 L Sodium (136-145) mmol/L Potassium (3.5-5.1) mmol/L Chloride (98-107) mmol/L Carbon Dioxide (21.0-32.0) mmol/L Anion Gap (3-11) mmol/L BUN (7-18) mg/dL Creatinine (0.55-1.02) mg/dL Est GFR (CKD-EPI 2020) (mL/min/1.73m2) Glucose (74-106) mg/dL Calcium (8.5-10.1) mg/dL Magnesium (1.8-2.4) mg/dL Total Bilirubin (0.2-1.0) mg/dL AST (15-37) U/L ALT (14-59) U/L Alkaline Phosphatase (46-116) U/L Troponin I (<or=60) ng/L Total Protein (6.4-8.2) g/dL Albumin (3.4-5.0) g/dL Lipase (73-393) U/L Urine Color (Yellow) Urine Clarity (Clear) Urine pH (5-8) Ur Specific [place] (1.005-1.025) Urine Protein (Negative) mg/dL Urine Ketones (Negative) mg/dL Urine Blood (Negative) Urine Nitrite (Negative) Urine Bilirubin (Negative) Urine Urobilinogen (Up TO 0.2) EU/dL Ur Leukocyte Esterase (Negative) Urine Glucose (Negative) mg/dL ECG Data Attestation: I personally reviewed and interpreted this ECG (s) as follows: Interpretation: Rate of 85, sinus, right bundle branch block, no STEMI. <Matt Rodriguez MD - Last Filed: 03/23/22 10:17> 0445 -- 66-year-old female with a history of hypertension, hyperlipidemia, diabetes, chronic kidney disease, migraines, GERD who presents for upper abdominal pain, diarrhea, chest pain and vomiting since last night. She states her upper abdominal pain resolved after the diarrhea. She states her chest pain resolved after the vomiting here in the ED. EKG notes a rate of 85, sinus, right bundle branch block, no STEMI nondiagnostic. Her blood pressure is moderately hypertensive but the remainder of vitals are within normal limits. Her abdomen is soft and nontender. Differential diagnosis includes GERD, gastritis, PUD, cholelithiasis, cholecystitis. History and presentation appears less likely consistent with ACS, PE or dissection. Considering her age and history, will obtain screening labs, CT chest abdomen and pelvis and give IV Zofran, IV Pepcid, GI cocktail and Carafate and reassess. 0530 -- labs reviewed. White blood cell count 11.82. Bicarb 20.2. Anion gap 12.8. Creatinine slightly elevated compared to baseline at 1.7. Glucose 404. T bili slightly elevated at 1.3. Troponin negative. Lipase within normal limits. Magnesium low at 0.9, will replete. 0700 --patient reassessed and she remains symptom-free. CT still pending. Patient is agreeable with plan for repeat troponin EKG at 8 AM. We will plan for repeat magnesium after magnesium repletion finishes at 10 AM. We will also check repeat BMP after IV fluids to assess for normalization of bicarb and anion gap. 0750 -- CT chest/abdomen/pelvis notes: IMPRESSION: 1. There is no evidence of pulmonary embolus in the visualized large central and segmental pulmonary artery branches. Motion artifact and technical factors limit evaluation of the smaller peripheral branches. 2. Mild peripheral vascular disease without aortic aneurysm or dissection. 3. Findings consistent with bronchitis/pneumonitis, likely infectious or inflammatory. 4. Wall thickening of multiple bowel loops consistent with infectious or inflammatory enteritis. Underdistension may present a similar picture. 5. Cholelithiasis with borderline thickening of the gallbladder wall. If there is clinical suspicion for acute cholecystitis, consider correlation with right upper quadrant ultrasound. Discussed with radiology and they are able to perform a gallbladder ultrasound this morning. 0800 --Case endorsed to Dr. Rodriguez to follow-up on gallbladder ultrasound and discussed with surgery and to follow-up on repeat troponin, EKG, BMP and magn esium. 0945 pt stable, states she feels better though is tender with palpation tot he ruq. U/s does show gallstone and thickened gallbladder, minimally elevated wbc, ast and alk phos. Concern for cholecystitis, marisolfran ordered, discussed with surgeon who accepts for admission HPI <Leola Burnett DO - Last Filed: 03/23/22 22:08> General Mode of arrival: ambulatory . Date/Time Provider Initiated Documentation: 03/23/22 04:58 . Limitations to Documentation: no limitations . Information obtained by: patient . HPI Narrative: Patient is a 66-year-old female with a history of hypertension, hyperlipidemia, diabetes, migraines, depression, chronic kidney disease and GERD who presents for upper abdominal pain, diarrhea, chest pain and vomiting since last night. Patient states her symptoms started with upper abdominal pain that was aching and lasted for a few hours. She states she then had 2 episodes of watery brown diarrhea and took a dose of Tylenol and her abdominal pain resolved. She states after that she developed chest pain across her lower chest. She describes this pain as tightness and burning. She states she vomited twice here in the emergency department which was mainly food and she states her chest pain is now resolved. She states she ate chicken and cheese cake 2 hours before onset of symptoms. She was given 4 baby aspirin and 1 nitro per EMS with some relief. Patient denies any fever, cough, difficulty breathing, shortness of breath or dizziness. She denies any recent surgery, recent travel, recent sick contacts, new medications, leg pain or swelling. Related Data Home Medications Medication Instructions Recorded Confirmed albuterol sulfate 90 mcg/actuation 2 puff inhalation QID 12/01/18 03/23/22 aerosol inhaler amlodipine 10 mg tablet 10 mg PO DAILY 12/01/18 03/23/22 atorvastatin 40 mg tablet 40 mg PO DAILY 12/01/18 03/23/22 bisoprolol fumarate 10 mg tablet 10 mg PO DAILY 12/01/18 03/23/22 cetirizine 10 mg capsule 10 mg PO DAILY PRN 12/01/18 03/23/22 citalopram 40 mg tablet 40 mg PO DAILY 12/01/18 03/23/22 cyclobenzaprine 10 mg tablet 10 mg PO HS 12/01/18 03/23/22 losartan 100 mg tablet 100 mg PO DAILY 12/01/18 03/23/22 metformin 1,000 mg tablet 1,000 mg PO BID 12/01/18 03/23/22 acetaminophen 325 mg tablet 325 mg PO ONCE PRN 12/14/18 03/23/22 (Tylenol) aspirin 325 mg tablet 325 mg PO DAILY PRN 12/14/18 03/23/22 insulin glargine 100 unit/mL 82 unit subcut QHS 04/14/19 03/23/22 subcutaneous solution (Lantus U-100 Insulin) cholecalciferol (vitamin D3) 25 25 mcg PO DAILY 04/12/20 03/23/22 mcg (1,000 unit) capsule omeprazole 20 mg capsule,delayed 20 mg PO DAILY PRN 04/12/20 03/23/22 release bismuth subsalicylate 262 mg/15 mL 524 mg PO Q30-60M PRN 04/05/21 03/23/22 oral suspension melatonin 5 mg capsule 5 mg PO PRN 04/05/21 03/23/22 amitriptyline 50 mg tablet See Rx Instructions .Route 06/25/21 03/23/22 .COMPLEX #90 tabs Previous Rx's Medication Instructions Recorded amitriptyline 50 mg tablet See Rx Instructions .Route 06/25/21 .COMPLEX #90 tabs Allergies Allergy/AdvReac Type Severity Reaction Status Date / Time camphor Allergy Mild Verified 03/23/22 07:05 fenofibrate Allergy Mild Verified 03/23/22 07:05 raspberry Allergy Mild Verified 03/23/22 07:05 trolamine salicylate Allergy Mild Verified 03/23/22 07:05 adhesive Allergy Verified 03/23/22 07:05 anthony Allergy Severe Skin Rash Uncoded 03/23/22 07:05 bezoyl peroxide Allergy Mild Uncoded 03/23/22 07:05 cedarwood oil Allergy Mild Uncoded 03/23/22 07:05 methylmethacrylate Allergy Mild Uncoded 03/23/22 07:05 General Stated Complaint: Chest Pain JANENE: 3 Review of Systems <Leola Burnett DO - Last Filed: 03/23/22 22:08> All systems reviewed & are unremarkable except as noted in HPI and below Constitutional Constitutional: Reports as per HPI, Denies chills and Denies fever(s) Eyes Eyes: Denies blurry vision ENT Ears, Nose, Mouth, and Throat: Denies dizziness, Denies sore throat and Denies throat swelling Cardiovascular Cardiovascular: Reports chest pain and Denies dyspnea Respiratory Respiratory: Denies cough and Denies dyspnea Gastrointestinal Gastrointestinal: Reports abdominal pain, Reports diarrhea and Reports vomiting Genitourinary Genitourinary: Denies hematuria and Denies dysuria Musculoskeletal Musculoskeletal: Denies back pain and Denies numbness Integumentary/Breasts Skin/Breast: Denies lesions and Denies rash Neurologic Neurologic: Denies dizziness, Denies localized weakness and Denies numbness Allergic/Immunologic Allergic/Immunologic: Denies throat swelling PFSH <Leola Burnett DO - Last Filed: 03/23/22 22:08> All Active Problems (Updated 03/23/22 @ 20:32 by Get Murillo MD) Acute cholecystitis (Acute) Abdominal pain (Acute) Cholecystitis (Acute) Peripheral neuropathy (Acute) Chronic daily headache (Acute) Loose stools (Acute) Migraine headache without aura (Acute) Chronic low back pain (Acute) Iron deficiency (Acute) Polyneuropathy (Acute) Vitamin D deficiency (Acute) Arteriosclerotic heart disease (Acute) Osteopenia (Acute) Cataracts, both eyes (Acute) Medical History (Updated 03/23/22 @ 20:32 by Get Murillo MD) Asthma Chronic kidney disease Depression Diabetes mellitus Hyperlipemia Hypertension Migraine Peripheral vascular disease Surgical History (Updated 03/23/22 @ 05:30 by Leola Burnett DO) History of cataract surgery Hx of lithotripsy Family History Mother Diabetes Heart disease Hypertension Hyperlipidemia Father Diabetes Heart disease Hyperlipidemia Hypertension Leukemia Brother Diabetes Obesity Mental health disorder Social History (Updated 04/12/20 @ 13:04 by Lottie Kruger LPN) Smoking/Tobacco Use Status: Never Smoking risk assessment performed?: Yes Alcohol Intake: current Alcohol Intake frequency: holidays/special occasions only Drug use: Never Substance use type: does not use Do you feel safe at home: Yes Additional Social history: lives alone Exam <Leola Burnett DO - Last Filed: 03/23/22 22:08> Const General: cooperative and no acute distress Orientation: alert, awake and oriented x3 HENMT Head: normal to inspection Face and sinus: normal facial exam Eyes General: appearance normal, both eyes and all related structures Pupils: PERRL EOM: EOM intact bilaterally Neck Neck: normal visual inspection and No submandibular swelling Lymphatic: no lymphadenopathy noted Chest Chest: normal inspection of the chest and no tenderness Resp Effort & Inspection: normal respiratory effort and able to speak in complete sentences Auscultation: clear to auscultation bilaterally Cardio Rate: regular rate Rhythm: regular rhythm GI Inspection: normal to inspection Palpation: soft, not firm, not rigid and nontender Auscultation: hypoactive bowel sounds Back/Spine/Pelvis Thoracic/Lumbar Spine: thoracic and lumbar spine normal to inspection Pelvis: no pain with anterior-posterior compression Skin General skin exam: no rashes or lesions noted Neuro General: patient alert, patient awake and patient oriented x3 Cognition: normal cognition Speech: speech normal Motor: muscle tone normal throughout Sensory Exam: no sensory deficits noted Extrem General: normal to inspection, full ROM, capillary refill normal, no calf tenderness bilaterally and no edema Psych Appearance: grossly normal Mental Status: mental status grossly normal Speech and Movement: speech and movement normal Affect: normal affect Course <Leola Burnett DO - Last Filed: 03/23/22 22:08> Vital Signs Vital signs: Vital Signs Temperature 98.1 F 03/23/22 04:44 Pulse 88 03/23/22 04:44 Respiratory Rate 20 03/23/22 04:44 Blood Pressure 137/52 L 03/23/22 04:44 Pulse Oximetry 98 03/23/22 04:44 Temperature 98.1 F 03/23/22 04:44 Temperature Source Tympanic 03/23/22 04:44 Pulse 88 03/23/22 04:44 Respiratory Rate 20 03/23/22 04:44 Blood Pressure 137/52 L 03/23/22 04:44 Blood Pressure Position Sitting 03/23/22 04:44 Pulse Oximetry 98 03/23/22 04:44 Oxygen Delivery Method Room Air 03/23/22 04:44 Oxygen Flow Rate 0 03/23/22 04:44 Pain Level 3 03/23/22 04:44 Sign Out <Leola Burnett DO - Last Filed: 03/23/22 22:08> Sign Out Data: Sign Out Comment: Upper abdominal pain, diarrhea, chest pain and vomiting since last night. Patient now symptom-free. Low magnesium which has been repleted. Follow-up on CT scan. Follow-up on repeat troponin and EKG after 8 AM. Follow- up on repeat BMP and magnesium after 10 AM. If patient remains symptom-free and remainder of work-up unremarkable, plan for discharge to home with follow-up with general surgery as needed for consideration for upper endoscopy. Last updated by Leola Burnett DO at 03/23/22 07:18
[2022-03-23 05:08] LABS: Absolute Neutrophil Count 10.57 10^3/uL (1.2-6.7)
--- NOTE | 2022-03-23 05:15 | RT.EKG_ITS ---
APPROVED REPORT Exam: Resting ECG Reason for Exam: chest pain Patient Location: E HR:94 bpm ECG Measurements Heart Rate 94 AXIS NE 156 P 70 QRSd 150 QRS 14 QT 410 T 42 QTc 514 Conclusion Sinus rhythm...normal P axis, V-rate 60- 99 Right bundle branch block...QRSd>120, terminal axis(90,270)
--- NOTE | 2022-03-23 05:15 | DI.CT_ITS ---
Exam(s) CT CHEST PE ABD PELVIS W EXAM: CT CHEST PE ABD PELVIS W CLINICAL HISTORY: chest and upper abd pain, vomiting. TECHNIQUE: Imaging Protocol: Axial CT angiography was performed with multi-slice acquisition and m ulti-planar and/or 3D reconstructions. CONTRAST MATERIAL: Intravenous: Omnipaque 350 Contrast volume:100 ml Oral: None COMPARISON: No exams were available for comparison FINDINGS: CHEST: PULMONARY ARTERIES: Somewhat limited vascular opacification. There are no obvious intra-arterial samantha ling defects to suggest the presence of acute pulmonary emboli. LUNGS: There is no evidence of pulmonary infarction.Some atelectasis is noted in the lingular segment of the left lung. No large confluent infiltrates nor pleural effusions. No ominous pulmonary nodul es. No findings in the trachea and mainstem bronchi. MEDIASTINUM: There is no hilar nor mediastinal adenopathy. Visualized thyroid unremarkable. CARDIAC: Heart size is upper normal. There is no pericardial effusion. There is no significant shif t of the interventricular septum.Caliber of the thoracic aorta is within normal limits. No evidence of dissection. OSSEOUS: No significant osseous lesions.No fractures.. ABDOMEN: There is no ascites. LIVER: There are no focal hepatic lesions nor dilatation of intrahepatic ducts. GALLBLADDER/BILIARY: Tiny gallstone noted. No obvious gallbladder wall edema. No pericholecystic fl uid. CBD not dilated and there is no radiopaque calculus in the nondilated CBD. PANCREAS: No evidence of pancreatic mass nor dilatation of the pancreatic duct. SPLEEN: Spleen size upper normal. Splenule noted medial to the spleen, this measuring 1.8 x 1.8 cm. Splenic and portal veins are patent. ADRENALS: There are no significant adrenal masses. KIDNEYS:No cysts evident. No calculi nor hydronephrosis. No solid renal masses. ABDOMINAL AORTA: Calcified but not enlarged. LYMPH NODES: There is no retroperitoneal or para-aortic adenopathy. ABDOMINAL WALL/GI: No evidence of significant anterior abdominal wall hernia. No bowel obstruction. PELVIS: LYMPH NODES: There is no intrapelvic nor inguinal adenopathy. GI: No evidence of appendicitis.No evidence of sigmoid diverticulitis. URINARY BLADDER: No calculi nor masses evident REPRODUCTIVE: Uterus and adnexal regions are age-appropriate. No free fluid. No extraovarian adnexa l masses. OSSEOUS: No significant osseous lesions. IMPRESSION: 1. No evidence of acute pulmonary emboli nor pulmonary infarction. Mild atelectasis lingular segment left lung. No confluent infiltrates. 2. There are no pleural effusions. 3. Cholelithiasis. There is a single small 3 millimeter calcified gallstone on the dependent wall of gallbladder. No obvious gallbladder wall edema. If clinically indicated follow-up right upper quad rant ultrasound can be performed. The CBD not dilated. RADIATION DOSE DELIVERED: 1,432.12mGy.cm Total DLP DATA REPOSITORY: All CT scans at this facility are submitted to the National Radiology Data Registry (NRDR) Dose Index Registry (DIR) with the [employer] (ACR). RADIATION OPTIMIZATION: All CT scans at this facility use at least one of these dose optimization te chniques: automated exposure control; mA and/or kV adjustment per patient size (includes targeted exa ms where dose is matched to clinical indication); or iterative reconstruction.
[2022-03-23 05:32] LABS: ALT 58 U/L (14-59); AST 104 U/L (15-37); Albumin 3.8 g/dL (3.4-5.0); Alkaline Phosphatase 139 U/L (46-116); Anion Gap 12.8 mmol/L (3-11); BUN 37 mg/dL (7-18); Bilirubin, Total 1.3 mg/dL (0.2-1.0); CO2 20.2 mmol/L (21.0-32.0); CREATININE 1.7 mg/dL (0.55-1.02); Calcium 9.5 mg/dL (8.5-10.1); Chloride 101 mmol/L (98-107); Estimated GFR 32.46 (mL/min/1.73m2); Glucose 404 mg/dL (74-106); Lipase 143 U/L (73-393); Magnesium 0.9 mg/dL (1.8-2.4); Potassium 4.7 mmol/L (3.5-5.1); Sodium 134 mmol/L (136-145); Total Protein 7.5 g/dL (6.4-8.2); Troponin I < 50 ng/L (<or=60)
[2022-03-23] MEDS: Sucralfate 1 GM TAB PO (05:34)
[2022-03-23] MEDS: Famotidine 20 MG/2 ML VIAL IVP (05:36)
[2022-03-23] MEDS: Mylanta Suspension 30 ML CUP (05:53)
[2022-03-23] MEDS: Omnipaque 350 MG/ML 100 ML BTL IJ (06:01)
[2022-03-23] MEDS: MAGNESIUM SULFATE 4 GM/100 ML BAG IVPB (06:07)
[2022-03-23] MEDS: Normal Saline - Diluent 50 ML VIAL IJ (06:08)
[2022-03-23] MEDS: Normal Saline 500 ML IV (07:00)
--- NOTE | 2022-03-23 07:45 | DI.VRAD_ITS ---
Addendum created by Lacho Michelle MD on 03/23/2022 7:52:54 AM EST: THIS REPORT CONTAINS FINDINGS THAT MAY BE CRITICAL TO PATIENT CARE. The findings were verbally communicated via telephone conference with jesus woods at 7:52 AM EST on 03/23/2022. The findings were acknowledged and understood. Initial report created on 03/23/2022 7:45:09 AM EST: PROCEDURE INFORMATION: Exam: CTA Chest With Contrast CTA Abdomen With Contrast Exam date and time: 03/23/2022 5:58 AM Age: 66 years old Clinical indication: Other: Chest and upper abd pain, vomiting; Abdominal pain; Localized; Additional info: R/O gastritis, cholecystitis, pe TECHNIQUE: Imaging protocol: Computed tomographic angiography of the chest with contrast. Computed tomographic angiography of the abdomen with contrast. 3D rendering (Not supervised by radiologist): MIP and/or 3D reconstructed images were created by the technologist. Radiation optimization: All CT scans at this facility use at least one of these dose optimization techniques: automated exposure control; mA and/or kV adjustment per patient size (includes targeted exams where dose is matched to clinical indication); or iterative reconstruction. Contrast material: OMNI 350; Contrast volume: 100 ml; Contrast route: INTRAVENOUS (IV); COMPARISON: CR XR ABDOMEN FLAT PLATE 02/26/2019 1:14 PM FINDINGS: Limitations: Motion artifact limits evaluation. VASCULATURE: Pulmonary arteries: There is no evidence of pulmonary embolus in the large central and segmental pulmonary arteries. Evaluation of the smaller peripheral branches is limited by motion artifact and technical factors. Aorta: There are scattered atherosclerotic plaques throughout the thoracic aorta, abdominal aorta and their branches without evidence of aneurysm or dissection. Celiac trunk and mesenteric arteries: There is a small plaque at the origin of the celiac trunk with minimal stenosis. The SMA is widely patent. There is a mild stenosis at the origin of the QASIM. Renal arteries: The right and left main renal arteries show no hemodynamically significant stenosis. Right iliac arteries: Scattered atherosclerotic plaques throughout the right iliac and visualized common femoral arteries without a hemodynamically significant stenosis. There is moderate diffuse disease of the right internal iliac artery. Left iliac arteries: Scattered atherosclerotic plaques throughout the left iliac and visualized common femoral arteries without a hemodynamically significant stenosis. There is moderate diffuse disease of the left internal iliac artery. CHEST: Lungs: There are mild bilateral dependent atelectatic changes of the lower lobes. There is no evidence of focal pulmonary consolidation. There is peribronchial thickening consistent with bronchial wall inflammatory changes as seen in bronchitis/pneumonitis. Pleural spaces: Unremarkable. No pneumothorax. No pleural effusion. Heart: Unremarkable. No cardiomegaly. No pericardial effusion. Diaphragm: There is a small sliding hiatal hernia. ABDOMEN AND PELVIS: Liver: There is mild hepatomegaly. There are no enhancing liver masses. Gallbladder and bile ducts: There are small calcified gallstones. There is no pericholecystic fluid. However, the gallbladder wall is borderline in thickness. Pancreas: Unremarkable. No mass. No ductal dilation. Spleen: Unremarkable. No splenomegaly. Adrenal glands: Unremarkable. No mass. Kidneys and ureters: Unremarkable. No solid mass. No hydronephrosis. Stomach and bowel: There are multiple, small bowel loops with thickened ashby consistent with enteritis (axial series 12, image 68; coronal 13, image 44). Intraperitoneal space: Unremarkable. No free air. No significant fluid collection. Lymph nodes: Unremarkable. No enlarged lymph nodes. Bones/joints: Unremarkable. No acute fracture. Soft tissues: Unremarkable. IMPRESSION: 1. There is no evidence of pulmonary embolus in the visualized large central and segmental pulmonary artery branches. Motion artifact and technical factors limit evaluation of the smaller peripheral branches. 2. Mild peripheral vascular disease without aortic aneurysm or dissection. 3. Findings consistent with bronchitis/pneumonitis, likely infectious or inflammatory. 4. Wall thickening of multiple bowel loops consistent with infectious or inflammatory enteritis. Underdistension may present a similar picture. 5. Cholelithiasis with borderline thickening of the gallbladder wall. If there is clinical suspicion for acute cholecystitis, consider correlation with right upper quadrant ultrasound. Dictated and Authenticated by: Lacho Michelle MD. Ordering:ARTUR Bhagat MD
--- NOTE | 2022-03-23 07:45 | DI.US_ITS ---
Exam(s) US ABDOMEN LIMITED EXAM: US ABDOMEN LIMITED CLINICAL HISTORY: RUQ pain, cholelithiasis, r/o cholecystitis TECHNIQUE: Ultrasound abdomen performed using standard protocol. COMPARISON: US US RENAL from 02/26/2019 FINDINGS: There is no ascites evident. LIVER: Liver is hyperechoic indicating steatosis. There no discrete focal hepatic lesions identified . GALLBLADDER/BILIARY: Small gallstones noted. There appears to be a small amount of fluid around the gallbladder. Gallbladder wall thickness is upper normal and does not exhibit an obvious stripe sign The common hepatic duct isnot dilated, measuring 3-4mm at the level of angelo hepatis. PANCREAS: There is no evidence of pancreatic mass nor dilatation of the pancreatic duct. RIGHT KIDNEY:No evidence of solid mass, calculus, nor hydronephrosis. No cortical cysts evident. IMPRESSION: 1. Cholelithiasis. Small amount of fluid around the gallbladder, probably indicating element of cho lecystitis. CBD is not dilated. 2. Hepatic steatosis. No discrete focal hepatic lesions. 3. No other significant right upper quadrant ultrasound findings. DATA REPOSITORY:
[2022-03-23 08:17] LABS: Bilirubin Negative (Negative); Blood Negative (Negative); Clarity Clear (Clear); Glucose 500 mg/dL (Negative); Ketones Negative (Negative); Leukocyte Esterase Negative (Negative); Nitrite Negative (Negative); Specific Gravity 1.015 (1.005-1.025); Urobilinogen 0.2 EU/dL (Up TO 0.2)
[2022-03-23 08:18] LABS: BE (Venous) -11 mmol/L (-2-3); HCO3 (Venous) 16 mmol/L (23-28); O2 Sat (Venous) 59 %; TCO2 (Venous) 15 mmol/L (24-29); pCO2 (Venous) 34 mmHg (41-51); pH (Venous) 7.27 (7.31-7.41); pO2 (Venous) 35 mmHg
[2022-03-23 08:37] LABS: Anion Gap 13.9 mmol/L (3-11); BUN 35 mg/dL (7-18); CO2 17.1 mmol/L (21.0-32.0); CREATININE 1.6 mg/dL (0.55-1.02); Calcium 9.2 mg/dL (8.5-10.1); Chloride 103 mmol/L (98-107); Estimated GFR 34.91 (mL/min/1.73m2); Glucose 350 mg/dL (74-106); Potassium 4.3 mmol/L (3.5-5.1); Sodium 134 mmol/L (136-145)
[2022-03-23 08:42] LABS: Troponin I < 50 ng/L (<or=60)
--- NOTE | 2022-03-23 09:14 | DI.VRAD_ITS ---
Addendum created by Cleo Tate MD on 03/23/2022 9:18:11 AM EST: THIS REPORT CONTAINS FINDINGS THAT MAY BE CRITICAL TO PATIENT CARE. The findings were verbally communicated via telephone conference with Dr. Rodriguez at 9:17 AM EST on 03/23/2022. The findings were acknowledged and understood. Initial report created on 03/23/2022 9:14:02 AM EST: PROCEDURE INFORMATION: Exam: US Abdomen, Limited; Right Upper Quadrant Exam date and time: 03/23/2022 8:41 AM Age: 66 years old Clinical indication: Other: Chest pain TECHNIQUE: Imaging protocol: Real time ultrasound of the abdomen with image documentation. Limited exam focused on the right upper quadrant. COMPARISON: CT CHEST PE ABD PELVIS W 03/23/2022 5:58 AM FINDINGS: Liver: There is a diffuse increase in hepatic parenchymal echogenicity, consistent with fatty infiltration. Hepatomegaly 18.8 cm. Gallbladder: Gallstone in the gallbladder. Gallbladder wall thickness 4.6 mm. Negative sonographic Andrew sign Biliary ducts: Normal. No stones. Common duct measures 3.2 mm Pancreas: Visualized pancreas is unremarkable. Right kidney: No hydronephrosis in the right kidney. Right kidney 11.7 cm Portal venous: Hepatopetal flow in the portal vein IMPRESSION: 1. Gallstone in the gallbladder. Gallbladder wall thickness 4.6 mm. Common duct 3.2 mm; findings may reflect acute cholecystitis 2. There is a diffuse increase in hepatic parenchymal echogenicity, consistent with fatty infiltration. Hepatomegaly 18.8 cm. Dictated and Authenticated by: Cleo Tate MD. Ordering:ARTUR Bhagat MD
[2022-03-23] MEDS: Insulin REGULAR-Human 100 UNITS/ML UNIT 10 UNITS SC (09:56)
[2022-03-23] MEDS: PIPERACILLIN/TAZO 4.5 GM in Normal Saline 100 ML IVPB (09:56)
[2022-03-23 10:12] LABS: Source Nasal/Nares
[2022-03-23 10:45] LABS: COVID-19 PCR Negative (Negative)
--- NOTE | 2022-03-23 12:19 | HPE_ITS ---
Date of service: 03/23/22 Time of Service: 12:00 Assessment and Plan Assessment and plan (1) Acute cholecystitis: Status: Acute Assessment and plan: 66-year-old woman with likely acute cholecystitis clinically(despite no Andrew sign) and radiographically. Lab work supports this as the most likely di agnosis. She is hemodynamically stable and her abdominal exam is otherwise grossly benign. I am not sure what to make of the enteritis picture on CT scan but suspect it is an incidental finding. Clinically nothing about her described symptoms sounds like enteritis. Bilirubin of 1.3 unlikely to represent obstruction. Overall plan: #N.p.o. #IV antibiotics #DVT prophylaxis(patient also on full?dose aspirin) #Laparoscopic cholecystectomy in the morning History of Present Illness Narrative: 66-year-old woman was going about regular life yesterday when she started developing abdominal discomfort. She has had this happen a couple of times in the past but it always self?resolves and goes away. This time it did not and in the evening it was severe, constant and she called the ambulance and was brought to the emergency department. A CT scan was performed suggesting the possibility of acute cholecystitis but also showing the possibility of enteritis. The patient was kept on observation in the emergency department and an ultrasound was performed in the morning showing gallstones and wall thickening consistent with cholecystitis. At the bedside the patient denies any significant abdominal pain any longer and says it has subsided. She denies any sick contacts recently and has not had any unusual GI illnesses. She denies nausea or vomiting. She did have a single, isolated episode of diarrhea yesterday but has not had any diarrhea since or today. There are no fevers. At work showed mild leukocytosis(neutrophil shift), elevated liver enzymes with a mildly elevated bilirubin and alk phos. Never had intra-abdominal surgery before. PFSH All Active Problems (Updated 03/23/22 @ 20:32 by Get Murillo MD) Acute cholecystitis (Acute) Abdominal pain (Acute) Cholecystitis (Acute) Peripheral neuropathy (Acute) Chronic daily headache (Acute) Loose stools (Acute) Migraine headache without aura (Acute) Chronic low back pain (Acute) Iron deficiency (Acute) Polyneuropathy (Acute) Vitamin D deficiency (Acute) Arteriosclerotic heart disease (Acute) Osteopenia (Acute) Cataracts, both eyes (Acute) Medical History (Updated 03/23/22 @ 20:32 by Get Murillo MD) Asthma Chronic kidney disease Depression Diabetes mellitus Hyperlipemia Hypertension Migraine Peripheral vascular disease Surgical History (Updated 03/23/22 @ 05:30 by Leola Burnett DO) History of cataract surgery Hx of lithotripsy Family History Mother Diabetes Heart disease Hypertension Hyperlipidemia Father Diabetes Heart disease Hyperlipidemia Hypertension Leukemia Brother Diabetes Obesity Mental health disorder Social History (Updated 04/12/20 @ 13:04 by Lottie Kruger LPN) Smoking/Tobacco Use Status: Never Smoking risk assessment performed?: Yes Alcohol Intake: current Alcohol Intake frequency: holidays/special occasions only Drug use: Never Substance use type: does not use Do you feel safe at home: Yes Additional Social history: lives alone Meds Allergies and Home Medications Allergies Allergy/AdvReac Type Severity Reaction Status Date / Time camphor Allergy Mild Verified 03/23/22 07:05 fenofibrate Allergy Mild Verified 03/23/22 07:05 raspberry Allergy Mild Verified 03/23/22 07:05 trolamine salicylate Allergy Mild Verified 03/23/22 07:05 adhesive Allergy Verified 03/23/22 07:05 anthony Allergy Severe Skin Rash Uncoded 03/23/22 07:05 bezoyl peroxide Allergy Mild Uncoded 03/23/22 07:05 cedarwood oil Allergy Mild Uncoded 03/23/22 07:05 methylmethacrylate Allergy Mild Uncoded 03/23/22 07:05 Home Medications Medication Instructions Recorded Confirmed Type albuterol sulfate 90 mcg/actuation 2 puff inhalation QID 12/01/18 03/23/22 History aerosol inhaler amlodipine 10 mg tablet 10 mg PO DAILY 12/01/18 03/23/22 History atorvastatin 40 mg tablet 40 mg PO DAILY 12/01/18 03/23/22 History bisoprolol fumarate 10 mg tablet 10 mg PO DAILY 12/01/18 03/23/22 History cetirizine 10 mg capsule 10 mg PO DAILY PRN 12/01/18 03/23/22 History citalopram 40 mg tablet 40 mg PO DAILY 12/01/18 03/23/22 History cyclobenzaprine 10 mg tablet 10 mg PO HS 12/01/18 03/23/22 History losartan 100 mg tablet 100 mg PO DAILY 12/01/18 03/23/22 History metformin 1,000 mg tablet 1,000 mg PO BID 12/01/18 03/23/22 History acetaminophen 325 mg tablet 325 mg PO ONCE PRN 12/14/18 03/23/22 History (Tylenol) aspirin 325 mg tablet 325 mg PO DAILY PRN 12/14/18 03/23/22 History insulin glargine 100 unit/mL 82 unit subcut QHS 04/14/19 03/23/22 History subcutaneous solution (Lantus U-100 Insulin) cholecalciferol (vitamin D3) 25 25 mcg PO DAILY 04/12/20 03/23/22 History mcg (1,000 unit) capsule omeprazole 20 mg capsule,delayed 20 mg PO DAILY PRN 04/12/20 03/23/22 History release bismuth subsalicylate 262 mg/15 mL 524 mg PO Q30-60M PRN 04/05/21 03/23/22 History oral suspension melatonin 5 mg capsule 5 mg PO PRN 04/05/21 03/23/22 History amitriptyline 50 mg tablet See Rx Instructions .Route 06/25/21 03/23/22 Rx .COMPLEX #90 tabs Exam Narrative Exam Narrative: General: Nontoxic, comfortable and interactive Neuro: Alert and oriented x3 Psych: Appropriate mood and affect, good insight and understanding into her condition Abdomen: Soft, nondistended, mildly tender in the right upper quadrant but no Andrew sign. The bilateral lower quadrants and the rest of the abdomen are nontender. Results Labs Result diagrams: 03/23/22 05:00 03/23/22 08:13 Labs: Laboratory Results - last 24 hr 03/23/22 03/23/22 03/23/22 05:00 05:00 08:10 WBC 11.82 H RBC 3.84 L Hgb 11.3 Hct 35.2 L MCV 92 MCH 29.4 MCHC 32.1 RDW 14.4 Plt Count 265 MPV 11.1 H Immature Gran % 0.4 Neutrophils % 89.4 Lymphocytes % 7.2 Monocytes % 1.3 Eosinophils % 1.4 Basophils % 0.3 Nucleated RBC % 0.0 Absolute Neutrophils 10.57 H Absolute Lymphocytes 0.85 L Absolute Monocytes 0.15 Absolute Eosinophils 0.17 Absolute Basophils 0.04 VBG pH VBG pCO2 VBG pO2 VBG HCO3 VBG Total CO2 VBG O2 Saturation VBG Base Excess Sodium 134 L Potassium 4.7 Chloride 101 Carbon Dioxide 20.2 L Anion Gap 12.8 H BUN 37 H Creatinine 1.7 H Est GFR (CKD-EPI 2020) 32.46 Glucose 404 H Calcium 9.5 Magnesium 0.9 L Total Bilirubin 1.3 H AST 104 H ALT 58 Alkaline Phosphatase 139 H Troponin I < 50 Total Protein 7.5 Albumin 3.8 Lipase 143 Urine Color Yellow Urine Clarity Clear Urine pH 5.0 Ur Specific [place] 1.015 Urine Protein Negative Urine Ketones Negative Urine Blood Negative Urine Nitrite Negative Urine Bilirubin Negative Urine Urobilinogen 0.2 Ur Leukocyte Esterase Negative Urine Glucose 500 H COVID-19 Source SARS-CoV-2 (PCR) 03/23/22 03/23/22 03/23/22 08:13 08:13 08:13 WBC RBC Hgb Hct MCV MCH MCHC RDW Plt Count MPV Immature Gran % Neutrophils % Lymphocytes % Monocytes % Eosinophils % Basophils % Nucleated RBC % Absolute Neutrophils Absolute Lymphocytes Absolute Monocytes Absolute Eosinophils Absolute Basophils VBG pH VBG pCO2 VBG pO2 VBG HCO3 VBG Total CO2 VBG O2 Saturation VBG Base Excess Sodium 134 L Potassium 4.3 Chloride 103 Carbon Dioxide 17.1 L Anion Gap 13.9 H BUN 35 H Creatinine 1.6 H Est GFR (CKD-EPI 2020) 34.91 Glucose 350 H Calcium 9.2 Magnesium 2.0 Cancelled Total Bilirubin AST ALT Alkaline Phosphatase Troponin I < 50 Total Protein Albumin Lipase Urine Color Urine Clarity Urine pH Ur Specific [place] Urine Protein Urine Ketones Urine Blood Urine Nitrite Urine Bilirubin Urine Urobilinogen Ur Leukocyte Esterase Urine Glucose COVID-19 Source SARS-CoV-2 (PCR) 03/23/22 03/23/22 08:13 10:08 WBC RBC Hgb Hct MCV MCH MCHC RDW Plt Count MPV Immature Gran % Neutrophils % Lymphocytes % Monocytes % Eosinophils % Basophils % Nucleated RBC % Absolute Neutrophils Absolute Lymphocytes Absolute Monocytes Absolute Eosinophils Absolute Basophils VBG pH 7.27 L VBG pCO2 34 L VBG pO2 35 VBG HCO3 16 L VBG Total CO2 15 L VBG O2 Saturation 59 VBG Base Excess -11 L Sodium Potassium Chloride Carbon Dioxide Anion Gap BUN Creatinine Est GFR (CKD-EPI 2020) Glucose Calcium Magnesium Total Bilirubin AST ALT Alkaline Phosphatase Troponin I Total Protein Albumin Lipase Urine Color Urine Clarity Urine pH Ur Specific [place] Urine Protein Urine Ketones Urine Blood Urine Nitrite Urine Bilirubin Urine Urobilinogen Ur Leukocyte Esterase Urine Glucose COVID-19 Source Nasal/Nares SARS-CoV-2 (PCR) Negative Last Vital Signs Temp 98.1 F 03/23/22 04:44 Pulse 87 03/23/22 11:16 Resp 20 03/23/22 11:20 BP 116/40 L 03/23/22 11:16 Pulse Ox 95 03/23/22 11:20 Time Spent Time spent with Patient: <40 minutes Time was spent: obtaining and/or reviewing separately otained hiistory, in depentently interpreting results and counseling the patient
[2022-03-23] MEDS: Heparin 5,000 UNITS/ML VIAL 5000 UNITS SC (12:50)
[2022-03-23] MEDS: Acetaminophen 500 MG TAB 1000 MG PO ×2 (12:50)
[2022-03-23] MEDS: Lactated Ringers 1,000 ML 125 ML IV ×2 (14:31→22:48)
[2022-03-23] MEDS: Normal Saline 500 ML 30 ML IV (14:32)
[2022-03-23] MEDS: PIPERACILLIN/TAZO 3.375 GM in Normal Saline 50 ML IVPB ×2 (16:51→21:28)
[2022-03-23] MEDS: Normal Saline Flush 10 ML SYR IVP ×2 (21:41→23:06)
[2022-03-23] MEDS: Ondansetron 4 MG/2 ML VIAL IVP (23:05)
[2022-03-24] VITALS (16 sets, daily range): BP systolic 132–146; BP diastolic 36–72; PULSE 85–110; RESP 16–30; TEMP 36.5–38.1; O2SAT 90–95; BMI 31.9
[2022-03-24] MEDS: PIPERACILLIN/TAZO 3.375 GM in Normal Saline 50 ML IVPB ×4 (03:41→21:30)
[2022-03-24] MEDS: Normal Saline Flush 10 ML SYR IVP ×2 (03:42→21:39)
[2022-03-24] MEDS: Acetaminophen 500 MG TAB 1000 MG PO ×3 (03:53→18:58)
--- NOTE | 2022-03-24 04:02 | ANES.PREOP_ITS ---
General Info Date of Service Date Performed: 03/24/22 Height: 5 ft 6 in Weight: 89.8 kg Body Mass Index (BMI): 31.9 Meds Allergies and Home Medications Allergies Allergy/AdvReac Type Severity Reaction Status Date / Time camphor Allergy Mild Verified 03/23/22 07:05 fenofibrate Allergy Mild Verified 03/23/22 07:05 raspberry Allergy Mild Verified 03/23/22 07:05 trolamine salicylate Allergy Mild Verified 03/23/22 07:05 adhesive Allergy Verified 03/23/22 07:05 anthony Allergy Severe Skin Rash Uncoded 03/23/22 07:05 bezoyl peroxide Allergy Mild Uncoded 03/23/22 07:05 cedarwood oil Allergy Mild Uncoded 03/23/22 07:05 methylmethacrylate Allergy Mild Uncoded 03/23/22 07:05 Home Medication Medication Instructions Recorded albuterol sulfate 90 mcg/actuation 2 puff inhalation QID 12/01/18 aerosol inhaler amlodipine 10 mg tablet 10 mg PO DAILY 12/01/18 atorvastatin 40 mg tablet 40 mg PO DAILY 12/01/18 bisoprolol fumarate 10 mg tablet 10 mg PO DAILY 12/01/18 cetirizine 10 mg capsule 10 mg PO DAILY PRN 12/01/18 citalopram 40 mg tablet 40 mg PO DAILY 12/01/18 cyclobenzaprine 10 mg tablet 10 mg PO HS 12/01/18 losartan 100 mg tablet 100 mg PO DAILY 12/01/18 metformin 1,000 mg tablet 1,000 mg PO BID 12/01/18 acetaminophen 325 mg tablet 325 mg PO ONCE PRN 12/14/18 (Tylenol) aspirin 325 mg tablet 325 mg PO DAILY PRN 12/14/18 insulin glargine 100 unit/mL 82 unit subcut QHS 04/14/19 subcutaneous solution (Lantus U-100 Insulin) cholecalciferol (vitamin D3) 25 25 mcg PO DAILY 04/12/20 mcg (1,000 unit) capsule omeprazole 20 mg capsule,delayed 20 mg PO DAILY PRN 04/12/20 release bismuth subsalicylate 262 mg/15 mL 524 mg PO Q30-60M PRN 04/05/21 oral suspension melatonin 5 mg capsule 5 mg PO PRN 04/05/21 amitriptyline 50 mg tablet See Rx Instructions .Route 06/25/21 .COMPLEX #90 tabs Current Visit Medications: Current Medications Generic Name Dose Route Start Last Admin Trade Name Freq PRN Reason Stop Dose Admin Acetaminophen 1,000 mg 03/23/22 20:00 03/24/22 03:53 Acetaminophen 500 Mg Tab PO 1,000 mg Q6H BECKY Administration Heparin Sodium (Porcine) 5,000 units 03/23/22 22:00 03/23/22 22:36 Heparin 5,000 Units/Ml Vial SC Not Given Q12H BECKY Sodium Chloride 500 mls @ 0 mls/hr 03/23/22 12:20 03/23/22 14:32 Saline 500ml Bag IV 30 mls/hr PRN PRN Administration As Directed Piperacillin Sod/Tazobactam 50 mls @ 100 mls/hr 03/23/22 16:00 03/24/22 03:41 Sod 3.375 gm/ Sodium Chloride IVPB 100 mls/hr Q6H BECKY Administration Protocol Ringer's Solution 1,000 mls @ 125 mls/hr 03/23/22 12:30 03/23/22 22:48 IV 125 mls/hr INFUSION BECKY Administration IV Miscellaneous Supplies 1 each 03/23/22 12:30 Iv Access IV DIRECTED BECKY Iohexol 100 ml 03/23/22 06:15 03/23/22 06:01 Omnipaque 350 Mg/Ml 100 Ml Btl IJ 04/22/22 23:59 100 ml DIRECTED BECKY Administration Morphine Sulfate 2 mg 03/23/22 12:20 Morphine 2 Mg/Ml Syr IVP Q1H PRN PRN Ondansetron HCl 4 mg 03/23/22 12:20 03/23/22 23:05 Ondansetron 4 Mg/2 Ml Vial IVP 4 mg Q4H PRN PRN Administration Sodium Chloride 50 ml 03/23/22 06:15 03/23/22 06:08 Normal Saline - Diluent 50 Ml Vial IJ 50 ml .FOR DI USE BECKY Administration Sodium Chloride 0 ml 03/23/22 12:20 03/24/22 03:42 Normal Saline Flush 10 Ml Syr IVP 10 ml PRN PRN Administration PFSH Active Problems Active Problems: Problem Status Onset Code Acute cholecystitis K81.0 Abdominal pain R10.9 Cholecystitis K81.9 Peripheral neuropathy G62.9 Nuclear sclerotic cataract of right eye H25.11 Chronic daily headache R51 Loose stools R19.5 Nuclear sclerotic cataract of left eye H25.12 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 Migraine headache without aura G43.009 Chronic low back pain M54.5, G89.29 Iron deficiency E61.1 Polyneuropathy G62.9 Vitamin D deficiency E55.9 Arteriosclerotic heart disease I25.10 Osteopenia M85.80 Cataracts, both eyes H26.9 Medical History Medical History (Updated 03/23/22 @ 20:32 by Get Murillo MD) Asthma Chronic kidney disease Depression Diabetes mellitus Hyperlipemia Hypertension Migraine Peripheral vascular disease Surgical History Surgical History (Updated 03/23/22 @ 05:30 by Leola Burnett DO) History of cataract surgery Hx of lithotripsy Tobacco Smoking/Tobacco Use Status: Never Alcohol Alcohol Intake: current Alcohol intake frequency: holidays/special occasions only Substance Use Substance use: Never Substance use type: does not use Vital Signs and Lab Results Vital Signs Most Recent Vital Signs in EMR: Most Recent Vital Signs Temp Pulse Resp BP Pulse Ox 38 C H 93 H 20 134/62 97 03/24/22 03:53 03/23/22 23:49 03/23/22 23:49 03/23/22 23:49 03/23/22 23:49 Point of Care Results Point of Care Results: Finger Stick Blood Glucose 345 03/23/22 10:34 Lab Results Result Diagrams: 03/23/22 05:00 03/23/22 08:13 Blood Type / Crossmatch: No Data to Display Complete Blood Count: White Blood Count 11.82 10^3/uL (4.4-10.8) H 03/23/22 05:00 Red Blood Count 3.84 10^6/uL (3.93-5.22) L 03/23/22 05:00 Hemoglobin 11.3 g/dL (11.2-15.7) 03/23/22 05:00 Hematocrit 35.2 % (36.0-46.0) L 03/23/22 05:00 Platelet Count 265 10^3/uL (130-400) 03/23/22 05:00 Complete Metabolic Panel: Sodium 134 mmol/L (136-145) L 03/23/22 08:13 Potassium 4.3 mmol/L (3.5-5.1) 03/23/22 08:13 Chloride 103 mmol/L (98-107) 03/23/22 08:13 Carbon Dioxide 17.1 mmol/L (21.0-32.0) L 03/23/22 08:13 BUN 35 mg/dL (7-18) H 03/23/22 08:13 Creatinine 1.6 mg/dL (0.55-1.02) H 03/23/22 08:13 Est GFR (CKD-EPI 2020) 34.91 (mL/min/1.73m2) 03/23/22 08:13 Magnesium 2.0 mg/dL (1.8-2.4) 03/23/22 08:13 Calcium 9.2 mg/dL (8.5-10.1) 03/23/22 08:13 Albumin 3.8 g/dL (3.4-5.0) 03/23/22 05:00 Glucose 350 mg/dL (74-106) H 03/23/22 08:13 Liver Function Panel: Alanine Aminotransferase (ALT/SGPT) 58 U/L (14-59) 03/23/22 05: 00 Aspartate Amino Transf (AST/SGOT) 104 U/L (15-37) H 03/23/22 05 :00 Coagulation Panel: No Data to Display Cardiac Panel: Troponin I < 50 ng/L (<or=60) 03/23/22 Arterial Blood Gas: No Data to Display Venous Blood Gas: Venous Blood pH 7.27 (7.31-7.41) L 03/23/22 08:13 Venous Blood Partial Pressure O2 35 mmHg 03/23/22 08:13 Venous Blood Partial Pressure CO2 34 mmHg (41-51) L 03/23/22 08 :13 Venous Blood Oxygen Saturation 59 % 03/23/22 08:13 Venous Blood HCO3 16 mmol/L (23-28) L 03/23/22 08:13 Venous Blood Base Excess -11 mmol/L (-2-3) L 03/23/22 08:13 Venous Blood Total Carbon Dioxide 15 mmol/L (24-29) L 03/23/22 08:13 Pancreas Panel: Lipase 143 U/L (73-393) 03/23/22 05:00 Thyroid Panel: No Data to Display Infectious Disease: Coronavirus (COVID-19)(PCR) Negative (Negative) 03/23/22 10:08 Coronavirus 2019 Source Nasal/Nares 03/23/22 10:08 Blood Cultures: No Data to Display Toxicology Panel: No Data to Display Imaging and Studies Imaging and Studies Study information below may be from another EMR and interpreted by another provider. Please see original notes in EMR for more complete details. EKG Summary: 03/23/22: sinus. RBBB Anesthesia Assessment and Plan Anesthesia History Personal History: No History of Anesthesia Complications Family History: No Family History of Anesthesia Complications Exercise Tolerance Exercise Tolerance: Metabolic Equivalents>4 Cardiac & Pulmonary Exam Cardiac Exam: Normal S1/S2 Heart Sounds Pulmonary Exam: Clear Bilateral Breath Sounds Implantable Cardiac Device Does patient have a Pacemaker or an ICD?: No Airway Exam Known Difficult Airway: No Mallampati Class: 2 Mouth Opening: Normal (> 3cm) Thyromental Distance: Greater than 3 cm Neck Range of Motion: Limited ROM Neck Circumference: Normal Teeth Condition: Normal Dentition ASA Classification ASA Score: ASA 3 Emergency Case?: Yes NPO Status NPO Status: NPO Clears >2 hours, Solids >8 hours Anesthesia Plan Resuscitation Status: Full Code Anesthesia Technique: General Anesthesia Airway Planned: Endotracheal Tube Monitors Used: Standard Monitors Preoperative Comments:: 66 yo female with acute cholecystitis for lap elliott. currently inpt receiving pip/roberto, acetaminophen Sig PMHx: migraine, peripheral neuropathy (feet), asthma (albuterol, well controlled), CPAP, depression, htn (losartan, amlodipine), CKD (DM related), DM (metformin, glargine), never smoker, occ EtOH.
[2022-03-24] MEDS: Lactated Ringers 1,000 ML 125 ML IV (06:30)
--- NOTE | 2022-03-24 08:36 | INITIAL_ITS ---
- If Service Date Differs Date of service: 03/24/22 Time of Service: 08:36 Care Management Initial Assess REASON FOR HOSPITALIZATION:: Cholecystitis. PAST MEDICAL HISTORY/PAST SURGICAL HISTORY:: All Active Problems: Acute cholecystitis (Acute). Abdominal pain (Acute). Cholecystitis (Acute). Peripheral neuropathy (Acute). Chronic daily headache (Acute). Loose stools (Acute). Migraine headache without aura (Acute). Chronic low back pain (Acute). Iron deficiency (Acute). Polyneuropathy (Acute). Vitamin D deficiency (Acute). Arteriosclerotic heart disease (Acute). Osteopenia (Acute). Cataracts, both eyes (Acute). Medical History: Asthma. Chronic kidney disease. Depression. Diabetes mellitus. Hyperlipemia. Hypertension. Migraine. Peripheral vascular disease. Surgical History: History of cataract surgery. Hx of lithotripsy. PREVIOUS FUNCTIONAL STATUS/SOCIAL/FAMILY SUPPORTS:: Adrianna lives alone in an apartment in [facility]. She has a close friend in [place] who she is in daily contact with. She is retired but formerly worked in a [employer]. She drives and owns a car but her car is currently impounded and is in such disrepair that it isn't worth fixing. She is independent at baseline. CURRENT FUNCTIONAL STATUS:: Adrianna is sitting up in bed when CM comes to meet with her. She is pleasant and openly engages in conversation. She shares that she is depressed. She is not currently in counseling but she has seen a therapist in the past. We discuss a few simple techniques effective in improving mood and provides her with a list of community therapists. ADVANCE DIRECTIVES:: None on file; patient accepts form for completion at a later time. Has patient been provided with info about the portal/API?: Yes Did the patient sign up for the portal?: No CODE STATUS:: Full Code INSURANCE COVERAGE / FINANCIAL ISSUES:: Medicare. CURRENT HOME/COMMUNITY SERVICES/EQUIPMENT:: CPAP machine. PRIMARY CARE PHYSICIAN:: Shahla Poole NP. POTENTIAL DISCHARGE NEEDS:: Follow up appointments with PCP and surgeon. PATIENT/FAMILY EDUCATION NEEDS:: Review of discharge instructions, including limitations and medications; discuss Ask Me Three and self management needs. ANTICIPATED BARRIERS TO DISCHARGE:: None identified at this time. TRANSPORTATION:: Via private vehicle with a friend. PLAN:: Adrianna will be discharged home with no services when medically cleared by provider. She will follow up with her PCP, surgeon and plan of care as instructed. She will be transported home by a friend via private vehicle when ready. CM will continue to follow.
--- NOTE | 2022-03-24 08:44 | W.PM.PROGNOT ---
Date of Service Date of service: 03/24/22 Time of Service: 08:30 Assessment and Plan Assessment and plan (1) Acute cholecystitis: Status: Acute Assessment and plan: 66-year-old woman with gallstones and likely either acute cholecystitis is responding to antibiotics (cooling down) or she passed a gallstone and this is why she has resolution of symptoms. Enteritis is out of the picture with a formed bowel movement and no persistent abdominal discomfort. She has a benign abdominal exam this morning and is hemodynamically stable. I had a detailed discussion with her about gallbladder purpose/function, biliary disease/gallstones and gallbladder removal. I went over the indications, potential risks and also the benefits of laparoscopic cholecystectomy. She is in agreement and wishes to proceed. With complete resolution of her symptoms, I do not have a suspicion that her very low?grade bilirubin of 1.3 represents obstructive disease but rather simply reactive. Overall plan: Laparoscopic cholecystectomy Subjective Subjective Interval history since last seen: No overnight events or complaints. No fevers. Abdominal pain is now gone. She is hungry. She had a formed bowel movement last night. No diarrhea. Exam Narrative Exam Narrative: Gen: Nontoxic and comfortable, she does not have scleral icterus Neuro: Alert and oriented x3 Psych: Appropriate mood and affect, good insight and understanding Abdomen: Soft, nondistended and nontender Objective Last Vital Signs Temp 99.5 F 03/24/22 07:34 Pulse 89 03/24/22 07:34 Resp 20 03/24/22 07:34 BP 143/68 H 03/24/22 07:34 Pulse Ox 95 03/24/22 07:34 Laboratory Results - last 24 hr 03/23/22 03/23/22 08:13 10:08 Troponin I < 50 COVID-19 Source Nasal/Nares SARS-CoV-2 (PCR) Negative Time Spent with Patient Time Spent with Patient: <25 minutes Time was spent: referring, communicating with other health child care associate teacher and indepentently interpreting results
[2022-03-24] MEDS: Heparin 5,000 UNITS/ML VIAL 5000 UNITS SC ×2 (08:52→21:37)
[2022-03-24] MEDS: Bupivacaine 0.25% Pres-Free 30 ML VIAL (09:30)
--- NOTE | 2022-03-24 09:30 | GB_PTH ---
PATIENT: Adrianna Mac LOC: [place] Mills#:[id number] AGE/SX: 66/F ROOM: RE03/23/[address]: Get Murillo : 1955 BED: A DIS: 03/25/2022 SPEC #: [id number] RECD: 03/25/22 12:52 STATUS: BOLIVAR RE #: [id number] RISHI: 03/24/22 09:[address]: Get Murillo DEPT: Surgical Specimen RECD BY: Concepcion Spence ENTERED: 03/25/22 12:53 SP TYPE: GB OTHR DR: Shahla Poole Tissues: 1 - GALLBLADDER Procedures: GROSS AND MICRO LEVEL 3 Comments: [id number]
--- NOTE | 2022-03-24 10:02 | W.PM.OP ---
Date of service: 03/24/22 Time of Service: 10:03 Operative Note Operative Note Refer to Anesthesia Record Procedure Description: Procedure performed: Laparoscopic cholecystectomy Preoperative diagnosis: Acute cholecystitis Postop diagnosis: Acute cholecystitis, cirrhotic changes Surgeon: Thiago Murillo Bookkeeping Assistant: Luis Alberto Anesthesia: General Anesthesia provider: Jhoan Indication for procedure: 66-year-old woman with acute abdominal pain, leukocytosis and gallstones and ultrasound?findings consistent with cholecystitis. Findings: Reactive free fluid around a visibly inflamed gallbladder. Pericholecystic fluid also present. No visible findings compatible with enteritis. Normal biliary anatomy. Estimated blood loss: Scant Complications: None Drains: None Procedure details: The patient gave written consent and was in agreement with the risks, indications and benefits of the procedure.? The patient was taken to the operating room and laid supine with arms outstretched.? Anesthesia was administered which was tolerated very well.? Antibiotics have been given.? DVT prophylaxis have been given.? We performed a timeout and when we were all in agreement I began the case. We prepped and draped the abdomen in sterile fashion.? I used a Veress needle at the umbilicus.? A 5 mm Optiview port was placed at the umbilicus without any difficulty under direct visualization.? Diagnostic laparoscopy did not reveal any abnormalities within the peritoneal cavity except for a liver that appears to have early cirrhotic changes.? There was some reactive?appearing free fluid along the right pericolic gutter/liver border. The gallbladder was not immediately visible.? I placed 5 mm ports laterally under direct visualization.? I then performed diagnostic laparoscopy with a brief overview of the small bowel and did not visualize any evidence of enteritis. 12 mm port in the epigastrium under visualization and then focused my attention on the gallbladder. Underneath the right lobe of the liver I was able to easily find an acutely inflamed gallbladder. I was able to grasp this at the fundus and retracted it cephalad towards the patient's left shoulder without any difficulty. This nicely exposed the cystic plate structures. There is pericholecystic fluid present underneath the peritoneum lining in this region. Using a combination of blunt and sharp dissection I was able to completely expose the cystic duct and the cystic artery. I cleaned up the rest of the cystic plate and there were no other structures seen. I clipped these in standard/usual fashion. And then I divided them. I then removed the gallbladder off the liver bed with electrocautery and placed the specimen in an Endo Catch bag and removed from the abdomen. I checked for hemostasis and it was excellent. There was no bile leaking from the liver bed. I closed the 12 mm port through the fascia with 0 Vicryl.? The remaining 5mm ports were removed.? Skin was closed with absorbable sutures and Dermabond placed. Sponge, instrument and sharps counts were correct x3. Patient was extubated and taken to the PACU in hemodynamically stable condition.
[2022-03-24] MEDS: HYDROmorphone 2 MG/ML SYR IVP ×2 (10:38→10:50)
--- NOTE | 2022-03-24 10:46 | W.ANESPOSTOP ---
Postoperative Evaluation Date, Time and Location Date Performed: 03/24/22 Time Performed: 10:47 Patient Location: PACU Vital Signs Most Recent Imported Vital Signs: Most Recent Vital Signs Temp Pulse Resp BP Pulse Ox 36.5 C 103 H 16 145/72 H 94 03/24/22 10:33 03/24/22 10:33 03/24/22 10:33 03/24/22 10:33 03/24/22 10:33 Pain Score Most Recent Pain Score: Most Recent Pain Score Pain Level 8 03/24/22 10:33 Assessment Mental Status: Arousable with meaningful communication Airway and Respiratory Function: Patent airway with normal (patient baseline) respiratory exam Cardiovascular Function: Hemodynamically Stable Hydration Status: Adequately Hydrated Nausea & Vomiting: No Nausea or Vomiting Pain: Pain is Moderate or Severe Postoperative Pain Management: Pain being addressed with medication Peripheral Nerve Block: Patient did not receive a nerve block
[2022-03-24] MEDS: diphenhydrAMINE 25 MG CAP PO (23:39)
[2022-03-25] MEDS: Insulin Aspart 300 UNITS/3 ML PEN SC ×2 (00:12→07:57)
[2022-03-25 01:31] VITALS: RESP 21
[2022-03-25] MEDS: PIPERACILLIN/TAZO 3.375 GM in Normal Saline 50 ML IVPB (03:14)
[2022-03-25] MEDS: Acetaminophen 500 MG TAB 1000 MG PO ×2 (03:14→07:56)
[2022-03-25 03:27] VITALS: BP 136/68; PULSE 77; RESP 20; TEMP 36.8; O2SAT 95
[2022-03-25 07:42] VITALS: BP 147/64; PULSE 76; RESP 20; TEMP 36.8; O2SAT 92
--- NOTE | 2022-03-25 07:48 | W.PM.PROGNOT ---
Date of Service Date of service: 03/25/22 Time of Service: 08:00 Assessment and Plan Assessment and plan (1) Acute cholecystitis: Status: Acute Assessment and plan: 66-year-old woman with acute cholecystitis status post laparoscopic cholecystectomy who is postop day 1. She is doing excellent and hemodynamically stable and can be discharged home. She will deal with the blood sugars being elevated with her PCP and is supposed to start a new antidiabetic medication in the next few days. Follow-up in the next couple of weeks Subjective Subjective Interval history since last seen: No issues overnight. No nausea or vomiting. Tolerating clear liquids. Voiding well. Her blood sugars were quite high but they have been high historically and she is due to start a new medication she?reports that she discussed with her PCP only last week. Mild pain around the incision sites only. Exam Narrative Exam Narrative: General: Nontoxic and comfortable Neuro: Alert and oriented x3 Psych: Appropriate mood and affect, good insight and understanding Abdomen: Soft, nondistended and grossly nontender. Her incisions look perfect. The Dermabond is intact. Objective Last Vital Signs Temp 98.2 F 03/25/22 07:42 Pulse 76 03/25/22 07:42 Resp 20 03/25/22 07:42 BP 147/64 H 03/25/22 07:42 Pulse Ox 92 03/25/22 07:42 Time Spent with Patient Time Spent with Patient: <25 minutes Time was spent: referring, communicating with other health hospice care consultant and counseling the patient
[2022-03-25] MEDS: metFORMIN 500 MG TAB 1000 MG PO (07:57)
--- NOTE | 2022-03-25 10:57 | DSE_ITS ---
Date of service: 03/25/22 Time of Service: 10:59 DS: Diagnosis Discharge Diagnosis (1) Acute cholecystitis: Status: Acute Asessment and Plan: Follow-up in our office 10 to 14 days for routine postoperative care Discharge Plan Disposition Patient Disposition: Home Condition: Good Discharge Details Reason For Visit: Cholecystitis Admit Date/Time: 03/23/22 09:47 Admit Provider: Get Murillo Attending Provider: Get Murillo Primary Care Provider: Shahla Poole Hospital Course Hospital Course: Patient presented with acute cholecystitis. She was taken to the by EMS. In the ER she was diagnosed with an ultrasound. She was taken to the operating room for laparoscopic cholecystectomy. The procedure was uneventful and on postoperative day 1 she was tolerating a diet and ready for discharge home. Her only other issue during hospitalization was high blood sugars. She self?reports that she has recently seen her primary care doctor about this and is waiting to start a new medication. Home Meds and New Rx's Prescriptions: New tramadol 50 mg tablet 50 mg PO Q8H PRN (Reason: pain) Qty: 9 0RF Rx Instructions: Take 1 tablet by mouth up to every 8 hours if needed for severe pain. Do not drive while using this medication. This medication can be addictive, so please use it with caution Continued aspirin 325 mg tablet 325 mg PO DAILY PRN acetaminophen [Tylenol] 325 mg tablet 325 mg PO ONCE PRN Lantus U-100 Insulin 100 unit/mL solution 82 unit SC QHS cholecalciferol (vitamin D3) 25 mcg (1,000 unit) capsule 25 mcg PO DAILY atorvastatin 40 mg tablet 40 mg PO DAILY cyclobenzaprine 10 mg tablet 10 mg PO HS citalopram 40 mg tablet 40 mg PO DAILY albuterol sulfate 90 mcg/actuation HFA aerosol inhaler 2 puff IH QID metformin 1,000 mg tablet 1,000 mg PO BID losartan 100 mg tablet 100 mg PO DAILY cetirizine 10 mg capsule 10 mg PO DAILY PRN bisoprolol fumarate 10 mg tablet 10 mg PO DAILY amlodipine 10 mg tablet 10 mg PO DAILY omeprazole 20 mg capsule,delayed release(DR/EC) 20 mg PO DAILY PRN bismuth subsalicylate 262 mg/15 mL suspension 524 mg PO Q30-60M PRN Rx Instructions: do not exceed 8 doses in a 24 hour period melatonin 5 mg capsule 5 mg PO PRN amitriptyline 50 mg tablet See Rx Instructions .ROUTE .COMPLEX Qty: 90 0RF Dose Instruction: TAKE ONE TABLET BY MOUTH AT BEDTIME Rx Instructions: TAKE ONE TABLET BY MOUTH AT BEDTIME Discharge Instructions Instructions: Irritable Bowel Syndrome (DC), Colitis (ED), Laparoscopic Cholecystectomy (DC), Laparoscopic Cholecystectomy (GEN) Additional Instructions: Incisions:? Can be left uncovered. Keep clean.? It is okay to shower.?? Medications: Resume all of your regular home medications. Discuss your new diabetes medications with your PCP. Diet:? Regular Pain:? Mild discomfort will persist but pain should not be worsening.? Only Tylenol should be needed.? Call MD if anything is getting worse or for pain not controlled with Tylenol.? Activity: No restrictions, as tolerated. Other instructions:? Call the surgical office [phone] on Friday to schedule a followup visit. For FEVER, shortness of breath, chest pain, worsening symptoms or return of symptoms that brought you to the hospital, call [phone], the hospital([phone]) or go the Emergency department.? Stand Alone Forms: Nursing Discharge Form Referrals: Amarjit Cannon MD [ [facility] STAFF PHYSICIAN] - 04/04/22 10:00 am Activity:: Activity as Tolerated Equipment/Supplies:: No Equipment Needed Diet:: Normal Diet Discharge Orders Discharge Orders: Discharge Order (Routine); Ordered 03/25/22 Ordered By: Amarjit Cannon DS: Summary Time Spent with Patient providing and/or coordinating discharge services: Less than 30 minutes Status at Discharge Functional status at discharge: independent ambulation Overall status at discharge: patient is progressing back to baseline Mental Status: mental status grossly normal Speech and Movement: speech and movement normal Mood: congruent mood Affect: normal affect Exam Const General: cooperative, healthy appearing and comfortable Orientation: awake and oriented x3 Eyes General: appearance normal, both eyes and all related structures Conjunctivae: conjunctivae normal Sclera: sclerae normal Resp Effort & Inspection: normal respiratory effort and able to speak in complete sentences Cardio Jugular venous pressure: no JVD Rate: regular rate GI Inspection: non-distended Palpation: soft, no guarding, no hernias and nontender Auscultation: normal bowel sounds Other: bandages are clean and dry Skin General skin exam: normal turgor Neuro General: patient alert, patient awake and patient oriented x3 Cognition: normal cognition Extrem Right lower extremity: no edema Left lower extremity: no edema Psych Mental Status: mental status grossly normal Speech and Movement: speech and movement normal Mood: congruent mood Affect: normal affect DS: Data Vitals/I&O Vitals and I&O: Vital Signs Temperature 98.2 F 03/25/22 07:42 Temperature Source Tympanic 03/25/22 07:42 Pulse 76 03/25/22 07:42 Pulse Rhythm Regular 03/25/22 08:39 Pulse 90 03/23/22 13:16 Respiratory Rate 20 03/25/22 07:42 Respiratory Effort 03/25/22 08:39 Respiratory Depth Normal 03/25/22 08:39 Respiratory Pattern Normal 03/25/22 08:39 Blood Pressure 147/64 H 03/25/22 07:42 Blood Pressure Mean 48 03/23/22 13:31 Blood Pressure Position Sitting 03/23/22 04:44 Pulse Oximetry 92 03/25/22 07:42 Respiratory End-tidal CO2 32 03/24/22 11:08 Oxygen Delivery Method Room Air 03/25/22 07:42 Oxygen Flow Rate 0 03/25/22 07:42 Fraction of Inspired Oxygen (FIO2) 21 03/25/22 08:00 Pain Level 2 03/25/22 07:56 Comment 03/24/22 14:52 Intake & Output 03/24/22 03/24/22 03/25/22 11:59 23:59 11:59 Intake Total 1562.5 / 2777.083 1214.583 / 2777.083 50 / 50 Output Total 250 / 250 Balance 1312.5 / 2527.083 1214.583 / 2527.083 50 / 50 Weight 197 lb 15.602 oz Intake: IV 1562.5 / 2327.083 764.583 / 2327.083 50 / 50 Oral 0 / 450 450 / 450 Output: Urine 250 / 250 Emesis 0 / 0 Other: Urine Color Yellow Pale Urine Appearance Clear Clear Clear Urine Odor None Comment pT stated they voided 1 uknown void at this time. per pt Stool Size Moderate Stool Characteristics Soft Brown Emesis Description None Voiding Methods Toilet Toilet PFSH All Active Problems Acute cholecystitis (Acute) Abdominal pain (Acute) Cholecystitis (Acute) Peripheral neuropathy (Acute) Chronic daily headache (Acute) Loose stools (Acute) Migraine headache without aura (Acute) Chronic low back pain (Acute) Iron deficiency (Acute) Polyneuropathy (Acute) Vitamin D deficiency (Acute) Arteriosclerotic heart disease (Acute) Osteopenia (Acute) Cataracts, both eyes (Acute) Medical History Asthma Chronic kidney disease Depression Diabetes mellitus Hyperlipemia Hypertension Migraine Peripheral vascular disease Surgical History History of cataract surgery Hx of lithotripsy Family History Mother Diabetes Heart disease Hypertension Hyperlipidemia Father Diabetes Heart disease Hyperlipidemia Hypertension Leukemia Brother Diabetes Obesity Mental health disorder Social History Smoking/Tobacco Use Status: Never Smoking risk assessment performed?: Yes Alcohol Intake: current Alcohol Intake frequency: holidays/special occasions only Drug use: Never Substance use type: does not use Do you feel safe at home: Yes Additional Social history: lives alone Time Spent with Patient Time Spent with Patient: <45 minutes Time was spent: preparing to see the patient(eg.review tests), referring, communicating with other health critical care unit nurse and care coordination
--- NOTE | 2022-03-25 11:28 | PDOC.CMDIS ---
- If Service Date Differs Date of service: 03/25/22 Time of Service: 11:28 LACE Index Scoring Tool - Questions: Length of Stay (in days): 2 Acuity (Admit via E.D.?): Yes Comorbidities: Diabetes w/o Complication, Liver or Renal Disease E.D. Visits: 1 - Answers: Total Score: 11 Risk of Readmission: High Risk Care Management Discharge Reason for Hospitalization: Cholecystitis. Discharge Plan: Adrianna is discharged home via private vehicle with family with a plan to follow up with community providers and discharge plan of care as prescribed. New RX is transmitted to [facility]. Follow up with Dr. Cannon is 04/04/22 at 1000, as scheduled. No new Services are ordered. Patient/Family Education Needs: Review discharge instructions, limitations, medications and plan to follow up with community providers. Discuss ask me three.
== END 2022-03-25 11:18 | disposition home or self-care (01) | DRG 419 ==
LOC: ER 10:17 → MS 13:50
PROVIDERS: Physician Assistant; Admitting Provider Student in an Organized Health Care Education/Training Program; Emergency Provider Emergency Medicine; PCP Nurse Practitioner Family; Visit Provider Student in an Organized Health Care Education/Training Program
PROC: 0FT44ZZ Resection of Gallbladder, Percutaneous Endoscopic Approach (ICD-10-PCS; CPT 47562; principal; 2022-03-24 08:30)
DX: K80.12 Calculus of gallbladder with acute and chronic cholecystitis without obstruction (principal); G43.709 Chronic migraine without aura, not intractable, without status migrainosus; G89.29 Other chronic pain; M54.50 Low back pain, unspecified; D50.9 Iron deficiency anemia, unspecified; E55.9 Vitamin D deficiency, unspecified; I25.10 Atherosclerotic heart disease of native coronary artery without angina pectoris; M85.80 Other specified disorders of bone density and structure, unspecified site; J45.909 Unspecified asthma, uncomplicated; I12.9 Hypertensive chronic kidney disease with stage 1 through stage 4 chronic kidney disease, or unspecified chronic kidney disease; N18.9 Chronic kidney disease, unspecified; F32.A Depression, unspecified; E11.22 Type 2 diabetes mellitus with diabetic chronic kidney disease; E11.42 Type 2 diabetes mellitus with diabetic polyneuropathy; I73.9 Peripheral vascular disease, unspecified; E78.5 Hyperlipidemia, unspecified; E11.65 Type 2 diabetes mellitus with hyperglycemia; Z79.4 Long term (current) use of insulin
CPT/HCPCS: 47562; 36415; 36416; 71275; 74177; 80048; 80053; 82805; 82962; 83690; 87635; 93005; 96361; 96365; 96366; 96368; 96375; 99221; 99231; 99285; 76705; 81003; 83735; 84484; 85025; 88304; 93010; 94660; J1100; J1170; J1644; J2405; J2543; J2704; J3475; J3490

== ENCOUNTER → 2022-04-11 13:38 | Outpatient (BNVA) | payer MEDICARE, SELFPAY | PROVIDERS: PCP Nurse Practitioner Family; Referring Provider Nurse Practitioner Family; Visit Provider Physical Therapy Assistant | DX: Z48.815 Encounter for surgical aftercare following surgery on the digestive system (principal); Z90.49 Acquired absence of other specified parts of digestive tract ==

== ENCOUNTER → 2022-07-11 13:27 | Outpatient (BNVA) | payer MEDICARE, SELFPAY | PROVIDERS: PCP Nurse Practitioner Family; Referring Provider Nurse Practitioner Family; Visit Provider Physical Therapy Assistant | DX: Z12.11 Encounter for screening for malignant neoplasm of colon (principal) ==

== ENCOUNTER 2022-07-25 09:37 | Day surgery (SDC) | payer MEDICARE, SELFPAY ==
--- NOTE | 2022-07-24 19:10 | W.PM.DSUDISC ---
Date of service: 07/25/22 Time of Service: 12:04 Discharge Plan Disposition Patient Disposition: Home Condition: Good Discharge Details Reason For Visit: Screening colonoscopy Attending Provider: Amarjit Cannon Primary Care Provider: Shahla Poole Home Meds and New Rx's Prescriptions: Continued acetaminophen [Tylenol] 325 mg tablet 325 mg PO ONCE PRN Lantus U-100 Insulin 100 unit/mL solution 80 unit SC QHS cholecalciferol (vitamin D3) 25 mcg (1,000 unit) capsule 25 mcg PO DAILY atorvastatin 40 mg tablet 40 mg PO DAILY cyclobenzaprine 10 mg tablet 10 mg PO HS citalopram 40 mg tablet 40 mg PO DAILY albuterol sulfate 90 mcg/actuation HFA aerosol inhaler 2 puff IH QID metformin 1,000 mg tablet 1,000 mg PO BID losartan 100 mg tablet 100 mg PO DAILY cetirizine 10 mg capsule 10 mg PO DAILY PRN bisoprolol fumarate 10 mg tablet 10 mg PO DAILY amlodipine 10 mg tablet 10 mg PO DAILY omeprazole 20 mg capsule,delayed release(DR/EC) 20 mg PO DAILY PRN bismuth subsalicylate 262 mg/15 mL suspension 524 mg PO Q30-60M PRN Rx Instructions: do not exceed 8 doses in a 24 hour period melatonin 5 mg capsule 5 mg PO PRN amitriptyline 50 mg tablet See Rx Instructions .ROUTE .COMPLEX Qty: 90 0RF Dose Instruction: TAKE ONE TABLET BY MOUTH AT BEDTIME Rx Instructions: TAKE ONE TABLET BY MOUTH AT BEDTIME Discontinued bisacodyl [Dulcolax (bisacodyl)] 5 mg tablet,delayed release (DR/EC) 5 mg PO ONCE Qty: 4 0RF Rx Instructions: Take according to provider's instructions for colonoscopy prep. polyethylene glycol 3350 17 gram/dose powder 17 g PO ONCE Qty: 238 0RF Rx Instructions: To be taken as directed by prescriber's office for colonoscopy prep. Discharge Instructions Instructions: Colorectal Polyps (GEN) Additional Instructions: Adrianna, we were able to complete your colonoscopy today without any difficulty. I did find 4 polyps. I removed these all completely. I will be in touch when I have the pathology report that describes the nature of the polyps. 1. If tolerated, consume a soft, low fiber diet for 1-2 days. 2[address] Do not drive, drink alcohol, operate machinery, make critical decisions, or do activities that require coordination or balance for 24 hours. 3. Because air was put into your colon during the procedure, expelling air from your rectum (passing gas or farting) is normal. 4. You may not have a bowel movement for 1-3 days because of the colonoscopy prep. This is normal. 5. Go directly to the emergency room if you notice any of the following: Develop chills (warm to touch), or if you have a thermometer and your temperature is above 101 Difficulty breathing or difficultly swallowing Persistent vomiting Severe abdominal pain, other than gas cramps Severe chest pain Black, tarry stools Any bleeding ? exceeding one tablespoon 6. Call your physician if the site where your intravenous was started becomes red, swollen, painful, and warm to touch. 7. Your physician has reviewed your pre-procedure medications. Please continue to take those medications as previously ordered. You will be given specific information/education regarding any changes to your medications before leaving. Activity:: Activity as Tolerated Diet:: As Tolerated Discharge Orders Discharge Orders: Discharge Order (Routine); Ordered 07/24/22 Ordered By: Amarjit Cannon DS: Diagnosis Discharge Diagnosis (1) Screening for colon cancer: Status: Acute Asessment and Plan: Follow-up on polypectomy results
--- NOTE | 2022-07-24 19:12 | W.COLOREPORT ---
Date of service: 07/25/22 Time of Service: 12:08 Colonoscopy Report Date of procedure: 07/25/22 Pre-op diagnosis general: Screening colonoscopy Post-op diagnosis procedure note: other (Colon polyps) Procedure: Colonoscopy with polypectomy Surgeon: Amarjit Cannon Anesthesia Type: General:No Airway Estimated blood loss (mL): 10 Pathology: other (Colon polyps from 90, 80, 70, and 65 cm) Complications: None Disposition: same day Indications: Adrianna is a 66 year olf woman undergoing her next screening colonoscopy Prep: Miralax/Dulcolax Procedure Start Time: 11:13 Procedure End Time: 11:52 Retraction Time: 22 Findings: Colon polyps Procedure Description: After the induction of monitored anesthetic care, and with the patient in left lateral decubitus position, I began by performing an external anorectal exam.? Perineum and skin were normal, as was the anal verge.? There was no evidence of external hemorrhoids.? Next, I performed a digital rectal exam.? I did not appreciate any abnormal findings.? Next, I advanced a colonoscope into the rectal vault.? I performed retroflexion.? This was normal.? Using insufflation, I then advanced the colonoscope beyond the rectal folds and into the sigmoid colon before advancing towards the cecum.? The quality of the prep was excellent.? The colon was quite redundant, with numerous turns, making measurements difficult. The scope was noted to be in the cecum by identification of the ileocecal valve and appendiceal orifice.? I then began withdrawing the colonoscope using repeated irrigation as necessary for full evaluation of the colonic mucosa. I found polyps at 90, 80, 70, and 65 cm from the anal verge. Polyps at 90 and 80 cm were removed with cold snare polypectomy. Polyps at 70 and 65 cm were a little bit smaller (between 0.25 and 0.5 cm), and these were removed with cold forcep polypectomy. There was minimal bleeding from all the sites. Once the scope was withdrawn to the level of the rectum, great care was taken to examine portions of the rectal folds.? Finally, the scope was withdrawn and the patient was brought to the same-day surgery recovery unit as the anesthetic wore off. ?The findings and instructions were shared with the patient prior to discharge.
[2022-07-25 10:12] VITALS: BP 117/69; PULSE 101; RESP 17; TEMP 36.7; O2SAT 98
[2022-07-25] MEDS: Lactated Ringers 1,000 ML 80 ML IV (10:23)
--- NOTE | 2022-07-25 11:17 | W.ANESPRE ---
General Info Date of Service Date Performed: 07/25/22 Height: 5 ft 6 in Weight: 84.8 kg Body Mass Index (BMI): 30.2 Surgical Procedure: Operation Date: 07/25/22 11:05 Proposed Procedure Side Surgeon p Colonoscopy Amarjit Cannon MD Actual Procedure Side Surgeon p Colonoscopy Not Applicable Amarjit Cannon MD Pre-Op Diagnosis Post-Op Diagnosis colorectal screening Meds Allergies and Home Medications Allergies Allergy/AdvReac Type Severity Reaction Status Date / Time raspberry Allergy Severe anaphylacti Verified 07/25/22 10:05 c camphor Allergy Mild Skin Rash Verified 07/25/22 10:05 fenofibrate Allergy Mild pt unsure Verified 07/25/22 10:05 trolamine salicylate Allergy Mild pt unsure Verified 07/25/22 10:05 of rx adhesive Allergy Skin Rash Verified 07/25/22 10:05 anthony Allergy Severe Skin Rash Uncoded 07/25/22 10:05 bezoyl peroxide Allergy Mild Skin Rash Uncoded 07/25/22 10:05 cedarwood oil Allergy Mild Skin Rash Uncoded 07/25/22 10:05 methylmethacrylate Allergy Mild Skin Rash Uncoded 07/25/22 10:05 Home Medication Medication Instructions Recorded albuterol sulfate 90 mcg/actuation 2 puff inhalation QID 12/01/18 aerosol inhaler amlodipine 10 mg tablet 10 mg PO DAILY 12/01/18 atorvastatin 40 mg tablet 40 mg PO DAILY 12/01/18 bisoprolol fumarate 10 mg tablet 10 mg PO DAILY 12/01/18 cetirizine 10 mg capsule 10 mg PO DAILY PRN 12/01/18 citalopram 40 mg tablet 40 mg PO DAILY 12/01/18 cyclobenzaprine 10 mg tablet 10 mg PO HS 12/01/18 losartan 100 mg tablet 100 mg PO DAILY 12/01/18 metformin 1,000 mg tablet 1,000 mg PO BID 12/01/18 acetaminophen 325 mg tablet 325 mg PO ONCE PRN 12/14/18 (Tylenol) insulin glargine 100 unit/mL 80 unit subcut QHS 04/14/19 subcutaneous solution (Lantus U-100 Insulin) cholecalciferol (vitamin D3) 25 25 mcg PO DAILY 04/12/20 mcg (1,000 unit) capsule omeprazole 20 mg capsule,delayed 20 mg PO DAILY PRN 04/12/20 release bismuth subsalicylate 262 mg/15 mL 524 mg PO Q30-60M PRN 04/05/21 oral suspension melatonin 5 mg capsule 5 mg PO PRN 04/05/21 amitriptyline 50 mg tablet See Rx Instructions .Route 06/25/21 .COMPLEX #90 tabs Current Visit Medications: Current Medications Generic Name Dose Route Start Last Admin Trade Name Kalyani PRN Reason Stop Dose Admin Hyoscyamine Sulfate 0.125 mg 07/24/22 19:13 Hyoscyamine 0.125 Mg Sl/Oral/Chew SL 08/23/22 19:12 DIRECTED PRN Ringer's Solution 1,000 mls @ 80 mls/hr 07/25/22 06:00 07/25/22 10:23 IV 08/23/22 23:59 80 mls/hr INFUSION BECKY Administration IV Miscellaneous Supplies 1 each 07/25/22 06:00 Iv Access IV 08/23/22 23:59 DIRECTED BECKY Ondansetron HCl 4 mg 07/24/22 19:13 Ondansetron 4 Mg/2 Ml Vial IVP 08/23/22 19:12 Q4H PRN PRN Nausea / Vomiting Sodium Chloride 0 ml 07/25/22 06:00 Normal Saline Flush 10 Ml Syr IV 08/23/22 23:59 PRN PRN Sodium Chloride 0 ml 07/25/22 06:00 Normal Saline 10 Ml Vial IJ 08/23/22 23:59 DIRECTED PRN Sterile Water 0 ml 07/25/22 06:00 Water,Injection,Sterile 10 Ml Vial IJ 08/23/22 23:59 DIRECTED PRN PFSH Active Problems Active Problems: Problem Status Onset Code Chronic daily headache R51 Loose stools R19.5 Chronic low back pain M54.5, G89.29 Iron deficiency E61.1 Polyneuropathy G62.9 Vitamin D deficiency E55.9 Arteriosclerotic heart disease I25.10 Osteopenia M85.80 Cataracts, both eyes H26.9 Migraine headache without aura G43.009 Nuclear sclerotic cataract of left eye H25.12 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 Nuclear sclerotic cataract of right eye H25.11 Peripheral neuropathy G62.9 Screening for colon cancer Z12.11 Medical History Medical History Abdominal pain Acute cholecystitis Asthma Cholecystitis Chronic kidney disease Depression Diabetes mellitus Hyperlipemia Hypertension Migraine Peripheral vascular disease Surgical History Surgical History History of cataract surgery Hx of cholecystectomy Hx of lithotripsy Tobacco Smoking/Tobacco Use Status: Never Alcohol Alcohol Intake: current Alcohol intake frequency: holidays/special occasions only Substance Use Substance use: Never Substance use type: does not use Vital Signs and Lab Results Vital Signs Most Recent Vital Signs in EMR: Most Recent Vital Signs Temp Pulse Resp BP Pulse Ox 36.7 C 101 H 17 117/69 98 07/25/22 10:12 07/25/22 10:12 07/25/22 10:12 07/25/22 10:12 07/25/22 10:12 Lab Results Blood Type / Crossmatch: No Data to Display Complete Blood Count: No Data to Display Complete Metabolic Panel: No Data to Display Liver Function Panel: No Data to Display Coagulation Panel: No Data to Display Cardiac Panel: No Data to Display Arterial Blood Gas: No Data to Display Venous Blood Gas: No Data to Display Pancreas Panel: No Data to Display Thyroid Panel: No Data to Display Infectious Disease: No Data to Display Blood Cultures: No Data to Display Toxicology Panel: No Data to Display Imaging and Studies Imaging and Studies Study information below may be from another EMR and interpreted by another provider. Please see original notes in EMR for more complete details. EKG Summary: 03/23/22: sinus. RBBB Anesthesia Assessment and Plan Anesthesia History Personal History: No History of Anesthesia Complications Family History: No Family History of Anesthesia Complications Exercise Tolerance Exercise Tolerance: Metabolic Equivalents>4 Pertinent Negatives Pertinent Negatives: No Symptoms of GERD, No Major Cardiovascular Symptoms or Complaints and No History of CVA/TIA Cardiac & Pulmonary Exam Cardiac Exam: Normal S1/S2 Heart Sounds Pulmonary Exam: Clear Bilateral Breath Sounds Implantable Cardiac Device Does patient have a Pacemaker or an ICD?: No Airway Exam Known Difficult Airway: No Mallampati Class: 2 Mouth Opening: Normal (> 3cm) Thyromental Distance: Greater than 3 cm Neck Range of Motion: Limited ROM Neck Circumference: Normal Teeth Condition: Normal Dentition ASA Classification ASA Score: ASA 3 Emergency Case?: No NPO Status NPO Status: NPO Clears >2 hours, Solids >8 hours Anesthesia Plan Resuscitation Status: Full Code Anesthesia Technique: General Anesthesia Airway Planned: Natural Airway Monitors Used: Standard Monitors Preoperative Comments:: 66 yo female with acute cholecystitis for lap elliott. currently inpt receiving pip/roberto, acetaminophen Sig PMHx: migraine, peripheral neuropathy (feet), asthma (albuterol, well controlled), CPAP, depression, htn (losartan, amlodipine), CKD (DM related), DM (metformin, glargine), never smoker, occ EtOH.
[2022-07-25 11:18] VITALS: BMI 30.2
--- NOTE | 2022-07-25 11:30 | BOWEL_PTH ---
PATIENT: Adrianna Mac LOC: [facility] U#:[id number] AGE/SX: 66/F ROOM: RE07/25/[address]: Amarjit Cannon MD : 1955 BED: DIS: 07/25/2022 SPEC #: [id number] RECD: 07/25/22 12:59 STATUS: BOLIVAR RE #: [id number] RISHI: 07/25/22 11:[address]: Amarjit Cannon DEPT: Surgical Specimen RECD BY: Concepcion Spence ENTERED: 07/25/22 12:59 SP TYPE: Bowel OTHR DR: Shahla Poole Tissues: 1 - BIOPSY BOWEL 2 - BIOPSY BOWEL 3 - BIOPSY BOWEL 4 - BIOPSY BOWEL Procedures: GROSS AND MICRO LEVEL 4 Comments: [id number]
[2022-07-25 11:59] VITALS: BP 139/59; PULSE 106; RESP 18; TEMP 36.4; O2SAT 96
[2022-07-25 12:20] VITALS: BP 120/64; PULSE 91; RESP 18; TEMP 36.6; O2SAT 98
--- NOTE | 2022-07-25 12:54 | W.ANESPOSTOP ---
Postoperative Evaluation Date, Time and Location Date Performed: 07/25/22 Time Performed: 12:54 Patient Location: Day Surgery Unit Vital Signs Most Recent Imported Vital Signs: Most Recent Vital Signs Temp Pulse Resp BP Pulse Ox 36.6 C 91 H 18 120/64 98 07/25/22 12:20 07/25/22 12:20 07/25/22 12:20 07/25/22 12:20 07/25/22 12:20 Pain Score Most Recent Pain Score: Most Recent Pain Score Pain Level 0 07/25/22 12:20 Assessment Mental Status: Awake (Alert & Oriented to Patient Baseline) Airway and Respiratory Function: Patent airway with normal (patient baseline) respiratory exam Cardiovascular Function: Hemodynamically Stable Hydration Status: Adequately Hydrated Nausea & Vomiting: No Nausea or Vomiting Pain: Pt. Denies Any Pain Peripheral Nerve Block: Patient did not receive a nerve block
== END 2022-07-25 12:49 | disposition home or self-care (01) ==
PROVIDERS: PCP Nurse Practitioner Family; Visit Provider Surgery
PROC: 0DJD8ZZ Inspection of Lower Intestinal Tract, Via Natural or Artificial Opening Endoscopic (ICD-10-PCS; CPT 45378; principal; 2022-07-25 11:00)
DX: Z12.11 Encounter for screening for malignant neoplasm of colon (principal); D12.3 Benign neoplasm of transverse colon; Q43.8 Other specified congenital malformations of intestine; D12.4 Benign neoplasm of descending colon
CPT/HCPCS: 45385; 45380; 88305; J2001

== ENCOUNTER 2022-10-15 17:20 | Outpatient (REF) | payer MEDICARE, SELFPAY ==
[2022-10-15 21:20] LABS: HCT 35.5 % (36.0-46.0); HGB 11.5 g/dL (11.2-15.7); MCH 29.8 pg (27.0-33.0); MCHC 32.4 % (32.0-36.0); MCV 92 fL (80-95); MPV 11.5 fL (8.0-11.0); Platelet Count 264 10^3/uL (130-400); RBC 3.86 10^6/uL (3.93-5.22); RDW-SD 50.1 fL; WBC 8.74 10^3/uL (4.4-10.8)
[2022-10-15 21:24] LABS: AST 22 U/L (15-37); Albumin 4.1 g/dL (3.4-5.0); Alkaline Phosphatase 110 U/L (46-116); Anion Gap 16.8 mmol/L (3-11); BUN 32 mg/dL (7-18); Bilirubin, Total 0.6 mg/dL (0.2-1.0); CO2 17.2 mmol/L (21.0-32.0); CREATININE 1.2 mg/dL (0.55-1.02); Calcium 9.7 mg/dL (8.5-10.1); Calculated LDL 25 mg/dL (<100); Chloride 107 mmol/L (98-107); Cholesterol 126 mg/dL (<200); Glucose 166 mg/dL (74-106); HDL Cholesterol 36 mg/dL (40-60); Sodium 141 mmol/L (136-145); Total Protein 7.5 g/dL (6.4-8.2); Triglyceride 326 mg/dL (<150)
[2022-10-15 21:54] LABS: ALT 28 U/L (14-59)
[2022-10-15 22:42] LABS: Hemoglobin A1C 6.9 % (<5.7)
== END 2022-10-15 17:21 | disposition home or self-care (01) ==
LOC: NCHCN 17:20
PROVIDERS: PCP Nurse Practitioner Family; Visit Provider Physician Assistant
DX: E11.9 Type 2 diabetes mellitus without complications (principal)
CPT/HCPCS: 80053; 80061; 85027; 83036

== ENCOUNTER 2023-04-04 15:27 | Outpatient (REF) | payer MEDICARE, SELFPAY ==
[2023-04-04 15:16] LABS: HCT 35.7 % (36.0-46.0); HGB 11.5 g/dL (11.2-15.7); MCHC 32.2 % (32.0-36.0); MCV 90 fL (80-95); MPV 11.2 fL (8.0-11.0); Platelet Count 279 10^3/uL (130-400); RBC 3.97 10^6/uL (3.93-5.22); RDW 15.7 % (11.7-14.6); RDW-SD 51.2 fL; WBC 10.68 10^3/uL (4.4-10.8)
[2023-04-04 15:25] LABS: Anion Gap 13.9 mmol/L (3-11); BUN 44 mg/dL (7-18); CO2 18.1 mmol/L (21.0-32.0); CREATININE 1.6 mg/dL (0.55-1.02); Calcium 10.4 mg/dL (8.5-10.1); Chloride 107 mmol/L (98-107); Glucose 120 mg/dL (74-106); Potassium 4.9 mmol/L (3.5-5.1); Sodium 139 mmol/L (136-145)
[2023-04-04 15:52] LABS: Hemoglobin A1C 6.7 % (<5.7)
== END 2023-04-04 15:28 | disposition home or self-care (01) ==
LOC: NCHCN 15:27
PROVIDERS: PCP Nurse Practitioner Family; Visit Provider Physician Assistant
DX: E11.9 Type 2 diabetes mellitus without complications (principal); I10 Essential (primary) hypertension
CPT/HCPCS: 80048; 85027; 83036

== ENCOUNTER 2023-12-26 09:45 | Outpatient (CLI) | payer MEDICARE, SELFPAY ==
[2023-12-26 09:58] LABS: HCT 38.5 % (36.0-46.0); HGB 12.6 g/dL (11.2-15.7); MCH 30.1 pg (27.0-33.0); MCHC 32.7 % (32.0-36.0); MCV 92 fL (80-95); MPV 10.5 fL (8.0-11.0); Platelet Count 210 10^3/uL (130-400); RBC 4.19 10^6/uL (3.93-5.22); RDW-SD 49.9 fL; WBC 7.75 10^3/uL (4.4-10.8)
[2023-12-26 10:22] LABS: COMMENT (LAB VIEW ONLY) 122.45 mg/dL; Microalb ug/mg Crea 32.7 ug/mg Cr
[2023-12-26 10:23] LABS: Hemoglobin A1C 7.1 % (<5.7)
[2023-12-26 10:47] LABS: ALT 25 U/L (14-59); AST 21 U/L (15-37); Albumin 3.9 g/dL (3.4-5.0); Alkaline Phosphatase 127 U/L (46-116); Anion Gap 11.9 mmol/L (3-11); BUN 31 mg/dL (7-18); Bilirubin, Total 0.84 mg/dL (0.2-1.0); CO2 23.1 mmol/L (21.0-32.0); CREATININE 1.7 mg/dL (0.55-1.02); Calcium 10.2 mg/dL (8.5-10.1); Calculated LDL 27 mg/dL (<100); Chloride 103 mmol/L (98-107); Cholesterol 143 mg/dL (<200); Estimated GFR 32.06 (mL/min/1.73m2); Ferritin 62 ng/mL (8-252); Glucose 216 mg/dL (74-106); HDL Cholesterol 40 mg/dL (40-60); Potassium 4.9 mmol/L (3.5-5.1); Sodium 138 mmol/L (136-145); Total Protein 7.8 g/dL (6.4-8.2); Triglyceride 382 mg/dL (<150); Vitamin D 25 Total 49.3 ng/mL (30-100)
[2023-12-26 11:16] LABS: Iron 67 ug/dL (50-170); Total Iron Binding Capacity 393 ug/dL (250-450); Transferrin Sat 17 % (15-50)
== END 2023-12-26 09:46 | disposition home or self-care (01) ==
LOC: LBO 09:47
PROVIDERS: Visit Provider Physician Assistant
DX: E11.9 Type 2 diabetes mellitus without complications (principal); E55.9 Vitamin D deficiency, unspecified; E78.5 Hyperlipidemia, unspecified; D64.9 Anemia, unspecified; I10 Essential (primary) hypertension
CPT/HCPCS: 36415; 80053; 80061; 82306; 85027; 82043; 82570; 82728; 83036; 83540; 83550

== ENCOUNTER 2024-06-23 08:47 | Outpatient (CLI) | payer MEDICARE, SELFPAY ==
--- NOTE | 2024-06-23 | DI.RAD_ITS ---
Exam(s) XR FOOT LT COMPLETE EXAM: XR FOOT LT COMPLETE CLINICAL HISTORY: PAIN LEFT FOOT M79.672 LATERAL FOOT PAIN, ROLLED ANKLE WEEK AGO. TECHNIQUE: 2D digital imaging was performed of the left foot. Three images were obtained. AP, obli que and lateral views were obtained. COMPARISON: No exams were available for comparison FINDINGS: BONES: Deformity involving the base of the 5th metatarsal bone on the oblique view which may reflect enthesophyte. No bony destructive lesion is seen. There is an enthesophyte at the posterior calcaneu s. There is a moderate-sized plantar calcaneal spur. JOINTS: No dislocation present. SOFT TISSUE: Normal. IMPRESSION: No definite fracture is seen. There are overlapping structures seen at the base of the 5th metatarsa l on both the lateral view and the AP view. If there is continued concern for fracture of this area a repeat examination may be obtained. There is a deformity of the base of the 5th metatarsal seen on the oblique view which appears to represent enthesophyte or spur versus a fracture. There is no per iosteal reaction to suggest a healing fracture. DATA REPOSITORY: RADIATION DOSE DELIVERED:
== END 2024-06-23 09:07 ==
LOC: DI 08:47
PROVIDERS: Visit Provider Physician Assistant
DX: M79.672 Pain in left foot (principal); R93.89 Abnormal findings on diagnostic imaging of other specified body structures
CPT/HCPCS: 73630

== ENCOUNTER 2024-06-29 15:22 | Outpatient (REF) | payer MEDICARE, SELFPAY ==
[2024-06-29 19:43] LABS: Hemoglobin A1C 7.5 % (<5.7)
== END 2024-06-29 15:23 | disposition home or self-care (01) ==
LOC: NCHCN 15:22
PROVIDERS: Visit Provider Physician Assistant
DX: Z79.4 Long term (current) use of insulin (principal); E11.9 Type 2 diabetes mellitus without complications
CPT/HCPCS: 83036

== ENCOUNTER → 2024-11-10 08:33 | Outpatient (BNVA) | payer MEDICARE, SELFPAY | PROVIDERS: PCP Student in an Organized Health Care Education/Training Program; Referring Provider Student in an Organized Health Care Education/Training Program; Visit Provider Podiatrist | DX: L60.0 Ingrowing nail (principal); M79.672 Pain in left foot; E11.22 Type 2 diabetes mellitus with diabetic chronic kidney disease; N18.9 Chronic kidney disease, unspecified | CPT/HCPCS: 11750 ==

== ENCOUNTER → 2024-11-29 08:55 | Outpatient (BNVA) | payer MEDICARE, SELFPAY | PROVIDERS: PCP Physician Assistant; Referring Provider Student in an Organized Health Care Education/Training Program; Visit Provider Podiatrist | DX: L60.0 Ingrowing nail (principal); M79.671 Pain in right foot; M79.672 Pain in left foot; N18.9 Chronic kidney disease, unspecified; E11.9 Type 2 diabetes mellitus without complications | CPT/HCPCS: 11750 ==

== ENCOUNTER → 2024-12-21 12:54 | Outpatient (BNVA) | payer MEDICARE, SELFPAY | PROVIDERS: PCP Physician Assistant; Referring Provider Physician Assistant; Visit Provider Podiatrist | DX: L60.0 Ingrowing nail (principal); M79.672 Pain in left foot; N18.9 Chronic kidney disease, unspecified; E11.59 Type 2 diabetes mellitus with other circulatory complications; E11.22 Type 2 diabetes mellitus with diabetic chronic kidney disease; I10 Essential (primary) hypertension; M79.671 Pain in right foot | CPT/HCPCS: 99213 ==

== ENCOUNTER 2024-12-21 13:21 | Emergency (ER) | payer MEDICARE, SELFPAY ==
[2024-12-21] VITALS (54 sets, daily range): BP systolic 134–205; BP diastolic 46–79; PULSE 92–134; RESP 14–32; TEMP 35.7–37; O2SAT 92–98
--- NOTE | 2024-12-21 13:15 | RT.EKG_ITS ---
APPROVED REPORT Exam: Resting ECG Reason for Exam: Dizzy Patient Location: E HR:123 bpm ECG Measurements Heart Rate 123 AXIS OK 128 P 85 QRSd 136 QRS -49 QT 357 T 88 QTc 511 Conclusion Sinus tachycardia...rate> 99 Right bundle branch block...QRSd>120, terminal axis(90,270) No Occlusion [place]
[2024-12-21 13:46] LABS: Abs Immature Grans 0.05 10^3/uL (0.0-0.06); HCT 38.5 % (36.0-46.0); HGB 12.7 g/dL (11.2-15.7); Immature Grans % 0.5 %; MCH 30.1 pg (27.0-33.0); MCHC 33.0 % (32.0-36.0); MCV 91 fL (80-95); MPV 11.0 fL (8.0-11.0); Platelet Count 281 10^3/uL (130-400); RBC 4.22 10^6/uL (3.93-5.22); RDW 14.6 % (11.7-14.6); RDW-SD 47.9 fL; WBC 10.83 10^3/uL (4.4-10.8)
[2024-12-21 14:01] LABS: ALT 24 U/L (14-59); AST 16 U/L (15-37); Albumin 3.7 g/dL (3.4-5.0); Alkaline Phosphatase 147 U/L (46-116); Anion Gap 17.2 mmol/L (3-11); BUN 26 mg/dL (7-18); Bilirubin, Total 0.5 mg/dL (0.2-1.0); CO2 19.8 mmol/L (21.0-32.0); Calcium 9.9 mg/dL (8.5-10.1); Chloride 98 mmol/L (98-107); Estimated GFR 34.27 (mL/min/1.73m2); Glucose 349 mg/dL (74-106); Potassium 4.3 mmol/L (3.5-5.1); Sodium 135 mmol/L (136-145); Total Protein 7.6 g/dL (6.4-8.2)
[2024-12-21 14:16] LABS: Magnesium 1.7 mg/dL (1.8-2.4); TSH (W/Ref FT4) 2.18 uIU/mL (0.36-3.74); Troponin I 13 ng/L (<or=51)
[2024-12-21 14:20] LABS: Glucose >=1000 mg/dL (Negative)
[2024-12-21 14:30] LABS: C & S Indicated? No; RBC Negative HPF (0-2); WBC Negative HPF (0-5)
[2024-12-21] MEDS: Insulin REGULAR-Human 100 UNITS/ML UNIT SC (14:31)
[2024-12-21] MEDS: Normal Saline 1,000 ML 1000 ML IV (14:31)
[2024-12-21 14:40] LABS: BE (Venous) -6 mmol/L (-2-3); HCO3 (Venous) 20 mmol/L (23-28); O2 Sat (Venous) 68 %; TCO2 (Venous) 18 mmol/L (24-29); pCO2 (Venous) 37 mmHg (41-51); pO2 (Venous) 38 mmHg
--- NOTE | 2024-12-21 15:14 | W.ED.GENAD ---
Discharge Plan Disposition Patient Disposition: Home Condition: Stable Discharge Details Clinical Impression: Diabetes mellitus, Acute dehydration, CKD (chronic kidney disease) Primary Care Provider: Adin Garcia ED Provider: Dorothy Sheikh Home Meds and New Rx's Prescriptions: Continued acetaminophen [Tylenol] 325 mg tablet 325 mg PO ONCE PRN Lantus U-100 Insulin 100 unit/mL solution 80 unit SC QHS cholecalciferol (vitamin D3) 25 mcg (1,000 unit) capsule 25 mcg PO DAILY atorvastatin 40 mg tablet 40 mg PO DAILY cyclobenzaprine 10 mg tablet 10 mg PO HS citalopram 40 mg tablet 40 mg PO DAILY albuterol sulfate 90 mcg/actuation HFA aerosol inhaler 2 puff IH QID metformin 1,000 mg tablet 1,000 mg PO DAILY losartan 100 mg tablet 100 mg PO DAILY cetirizine 10 mg capsule 10 mg PO DAILY PRN bisoprolol fumarate 10 mg tablet 10 mg PO DAILY amlodipine 10 mg tablet 10 mg PO DAILY omeprazole 20 mg capsule,delayed release(DR/EC) 20 mg PO DAILY PRN bismuth subsalicylate 262 mg/15 mL suspension 524 mg PO Q30-60M PRN Rx Instructions: do not exceed 8 doses in a 24 hour period melatonin 5 mg capsule 5 mg PO PRN amitriptyline 50 mg tablet See Rx Instructions .ROUTE .COMPLEX Qty: 90 0RF Dose Instruction: TAKE ONE TABLET BY MOUTH AT BEDTIME Rx Instructions: TAKE ONE TABLET BY MOUTH AT BEDTIME Jardiance 10 mg tablet 10 mg PO DAILY Patient Comments: TAKE ONE TABLET BY MOUTH EVERY DAY Discharge Instructions Instructions: Dehydration, Adult (DC), Carb counting for adults with diabetes Additional Instructions: Please contact your doctor tomorrow and have blood pressure and your blood sugars reviewed. I have added on an A1c to your labs. Make sure you are drinking eight 8 ounce glasses of water daily. Recommend checking your blood glucose at home at least once a day and watching your diet. I did include some recommendations for diet diabetes. Your heart rate today was noted to be elevated, it is very important that you continue to take your bisoprolol and other medications as prescribed. Please return should develop your complaints including vomiting, recurrence of symptoms, or fever. Referrals: Adin Garcia [Primary Care Provider, Medicine] - 1 day Discharge Data Discharge Date/Time-TO BE ENTERED AT DEPARTURE: 12/21/24 19:08 HPI <RENATO Corrales - Last Filed: 12/22/24 13:58> General Date/Time Provider Initiated Documentation: 12/21/24 13:28. HPI Narrative: 69-year-old female presents with report blood pressure and some lightheadedness. Her blood pressure was reportedly checked at the doctor's office and it was 180/83 she was sent over for assessment. Patient denies any dizziness chest pain, shortness of breath. She denies any change in medications or any additional she states she is here for routine trimming of her nails. She has been eating and drinking within normal limits per patient. She used her insulin as prescribed this morning. Patient denies strength, sensation, or speech change. Related Data Home Medications ?Medication ?Instructions ?Recorded ?Confirmed albuterol sulfate 90 mcg/actuation 2 puff inhalation QID 12/01/18 12/21/24 aerosol inhaler amlodipine 10 mg tablet 10 mg PO DAILY 12/01/18 12/21/24 atorvastatin 40 mg tablet 40 mg PO DAILY 12/01/18 12/21/24 bisoprolol fumarate 10 mg tablet 10 mg PO DAILY 12/01/18 12/21/24 cetirizine 10 mg capsule 10 mg PO DAILY PRN 12/01/18 12/21/24 citalopram 40 mg tablet 40 mg PO DAILY 12/01/18 12/21/24 cyclobenzaprine 10 mg tablet 10 mg PO HS 12/01/18 12/21/24 losartan 100 mg tablet 100 mg PO DAILY 12/01/18 12/21/24 metformin 1,000 mg tablet 1,000 mg PO DAILY 12/01/18 12/21/24 acetaminophen 325 mg tablet 325 mg PO ONCE PRN 12/14/18 12/21/24 (Tylenol) insulin glargine 100 unit/mL 80 unit subcut QHS 04/14/19 12/21/24 subcutaneous solution (Lantus U-100 Insulin) cholecalciferol (vitamin D3) 25 25 mcg PO DAILY 04/12/20 12/21/24 mcg (1,000 unit) capsule omeprazole 20 mg capsule,delayed 20 mg PO DAILY PRN 04/12/20 12/21/24 release bismuth subsalicylate 262 mg/15 mL 524 mg PO Q30-60M PRN 04/05/21 12/21/24 oral suspension melatonin 5 mg capsule 5 mg PO PRN 04/05/21 12/21/24 amitriptyline 50 mg tablet See Rx Instructions .Route 06/25/21 12/21/24 .COMPLEX #90 tabs empagliflozin 10 mg tablet 10 mg PO DAILY 12/21/24 12/21/24 (Jardiance) Previous Rx's ?Medication ?Instructions ?Recorded amitriptyline 50 mg tablet See Rx Instructions .Route 06/25/21 .COMPLEX #90 tabs Allergies Allergy/AdvReac Type Severity Reaction Status Date / Time raspberry Allergy Severe anaphylacti Verified 12/21/24 13:26 c camphor Allergy Mild Skin Rash Verified 12/21/24 13:26 fenofibrate Allergy Mild pt unsure Verified 12/21/24 13:26 trolamine salicylate Allergy Mild pt unsure Verified 12/21/24 13:26 of rx adhesive Allergy Skin Rash Verified 12/21/24 13:26 anthony Allergy Severe Skin Rash Uncoded 12/21/24 13:26 bezoyl peroxide Allergy Mild Skin Rash Uncoded 12/21/24 13:26 cedarwood oil Allergy Mild Skin Rash Uncoded 12/21/24 13:26 methylmethacrylate Allergy Mild Skin Rash Uncoded 12/21/24 13:26 General Stated Complaint: Dizzy/Sync JANENE: 2 Exam <RENATO Corrales - Last Filed: 12/22/24 13:58> Narrative Exam Narrative: Alert and oriented 69-year-old female in no acute distress pupils equal round reactive to light and accommodation [id number] negative heel-leone, cranial nerves II through XII intact cardiac rate rhythm tachycardic without murmur or rub, sinus, lungs clear to auscultation no respiratory distress no abdominal tenderness, no calf swelling or tenderness appreciated. No pronator drift Course <RENATO Corrales Last Filed: 12/22/24 13:58> Vital Signs Vital signs: Vital Signs Temperature 37.0 C 12/21/24 13:23 Pulse 132 H 12/21/24 13:23 Respiratory Rate 20 12/21/24 13:23 Blood Pressure 146/79 H 12/21/24 13:23 Pulse Oximetry 96 12/21/24 13:23 Temperature 37.0 C 12/21/24 13:23 Pulse 111 H 12/21/24 13:50 Pulse 111 H 12/21/24 13:50 Respiratory Rate 18 12/21/24 13:50 Respiratory Effort Normal, Non-Labored 12/21/24 13:43 Respiratory Depth Normal 12/21/24 13:43 Respiratory Pattern Normal 12/21/24 13:43 Blood Pressure 171/64 H 12/21/24 13:45 Blood Pressure Mean 101 12/21/24 13:45 Pulse Oximetry 96 12/21/24 13:50 Lab/Test Results Lab/Test Results: Laboratory Tests Range/Units 12/21/24 12/21/24 12/21/24 13:35 14:10 14:35 WBC (4.4-10.8) 10^3/uL 10.83 H RBC (3.93-5.22) 10^6/uL 4.22 Hgb (11.2-15.7) g/dL 12.7 Hct (36.0-46.0) % 38.5 MCV (80-95) fL 91 MCH (27.0-33.0) pg 30.1 MCHC (32.0-36.0) % 33.0 RDW (11.7-14.6) % 14.6 Plt Count (130-400) 10^3/uL 281 MPV (8.0-11.0) fL 11.0 Immature Gran % % 0.5 Neutrophils % % 66.5 Lymphocytes % % 24.7 Monocytes % % 5.8 Eosinophils % % 1.9 Basophils % % 0.6 Nucleated RBC % (0.0-0.3) % 0.0 Absolute Neutrophils (1.2-6.7) 10^3/uL 7.20 H Absolute Lymphocytes (1.2-3.4) 10^3/uL 2.68 Absolute Monocytes (0.1-0.8) 10^3/uL 0.63 Absolute Eosinophils (0.0-0.7) 10^3/uL 0.21 Absolute Basophils (0.0-0.2) 10^3/uL 0.06 VBG pH (7.31-7.41) 7.34 VBG pCO2 (41-51) mmHg 37 L VBG pO2 mmHg 38 VBG HCO3 (23-28) mmol/L 20 L VBG Total CO2 (24-29) mmol/L 18 L VBG O2 Saturation % 68 VBG Base Excess (-2-3) mmol/L -6 L Sodium (136-145) mmol/L 135 L Potassium (3.5-5.1) mmol/L 4.3 Chloride (98-107) mmol/L 98 Carbon Dioxide (21.0-32.0) mmol/L 19.8 L Anion Gap (3-11) mmol/L 17.2 H BUN (7-18) mg/dL 26 H Creatinine (0.55-1.02) mg/dL 1.6 H Est GFR (CKD-EPI 2020) (mL/min/1.73m2) 34.27 Glucose (74-106) mg/dL 349 H Calcium (8.5-10.1) mg/dL 9.9 Magnesium (1.8-2.4) mg/dL 1.7 L Total Bilirubin (0.2-1.0) mg/dL 0.5 AST (15-37) U/L 16 ALT (14-59) U/L 24 Alkaline Phosphatase (46-116) U/L 147 H Troponin I (<or=51) ng/L 13 Total Protein (6.4-8.2) g/dL 7.6 Albumin (3.4-5.0) g/dL 3.7 TSH (0.36-3.74) uIU/mL 2.18 Urine Color (Yellow) Yellow Urine Clarity (Clear) Clear Urine pH (5-8) 5.5 Ur Specific Mcleod (1.005-1.025) 1.015 Urine Protein (Neg-Trace) mg/dL Negative Urine Ketones (Negative) mg/dL Negative Urine Blood (Negative) Negative Urine Nitrite (Negative) Negative Urine Bilirubin (Negative) Negative Urine Urobilinogen (Up to 0.2) mg/dL 0.2 Ur Leukocyte Esterase (Negative) Negative Urine RBC (0-2) HPF Negative Urine WBC (0-5) HPF Negative Ur Epithelial Cells (Negative) HPF Rare Urine Crystals (Negative) HPF Negative Urine Bacteria (Negative) HPF Negative Urine Casts (Negative) LPF Negative Urine Mucus (Negative) Negative Ur Culture Indicated? No Urine Glucose (Negative) mg/dL >=1000 H Medical Decision Making <RENATO Corrales - Last Filed: 12/22/24 13:58> Results: Patient with CBC of 10 pCO2 of 37, HCO3 of 20 anion gap slightly increased at 17.2 creatinine 1.6 BUN of 20, these are all consistent with prior except for Which is slightly increased from prior. Low suspicion clinically for DKA patient is a insulin-dependent type 2 diabetic who takes her insulin in the morning. Patient tachycardic and lightheaded, I suspect this is secondary to dehydration and hyperglycemia. Patient will receive fluids, 5 units of subcutaneous insulin, and we will recheck labs, VBG with pH of 7.34 no ketones in urine which is reassuring. Will recheck BMP after completion of fluids and recheck glucose 1 hour after administration of insulin. Patient continues to have anion gap and tachycardia, recommendation for admission for observation. If the gap and tachycardia have improved, patient likely stable for discharge home patient follow-up with primary care doctor blood pressure is 160/60, encouraged to close reviewed PCP. pt feeling symptomatically improved. PFS <RENATO Corrales - Last Filed: 12/22/24 13:58> All Active Problems (Updated 12/21/24 @ 15:46 by RENATO Corrales) CKD (chronic kidney disease) (Chronic) Acute dehydration (Acute) Pain in right foot (Acute) T2DM (type 2 diabetes mellitus) (Acute) Hypertension (Chronic) Pain in left foot (Acute) Depression (Chronic) Chronic kidney disease (Chronic) Peripheral vascular disease (Chronic) Hyperlipemia (Acute) Diabetes mellitus (Chronic) Tubular adenoma (Acute ~07/25/22) Chronic daily headache (Acute) Loose stools (Acute) Chronic low back pain (Acute) Iron deficiency (Acute) Polyneuropathy (Acute) Vitamin D deficiency (Acute) Arteriosclerotic heart disease (Acute) Osteopenia (Acute) Cataracts, both eyes (Acute) Migraine headache without aura (Acute) Peripheral neuropathy (Acute) Screening for colon cancer (Acute) Medical History Acute cholecystitis Cholecystitis Abdominal pain Asthma Migraine Surgical History History of colonoscopy with polypectomy (~07/25/22) Hx of cholecystectomy Hx of lithotripsy History of cataract surgery Family History Mother Diabetes Heart disease Hypertension Hyperlipidemia Father Diabetes Heart disease Hyperlipidemia Hypertension Leukemia Brother Diabetes Obesity Mental health disorder Social History Smoking/Tobacco Use Status: Never Smoking risk assessment performed?: Yes Alcohol Intake: current Alcohol Intake frequency: holidays/special occasions only Drug use: Never Substance use type: does not use Do you feel safe at home: Yes Additional Social history: lives alone PAWSS <RENATO Corrales - Last Filed: 12/22/24 13:58> Have you Been Recently Intoxicated or Drunk Within the Last 30 days?: No Have you Ever Experienced Previous Episodes of Alcohol Withdrawal?: No Have you ever Experienced Withdrawal Seizures?: No Have you ever Experienced Delirium Tremens(DT)s?: No Have you ever undergone Alcohol Rehabilitation Treatment (i.e, inpt ot outpatient treatment programs)?: No Have you ever Experienced Blackouts?: No Have you ever Combined Alcohol with other Downers within the last 90 days?: No Have you ever Combined Alcohol with any other Substance of Abuse during the last 90 days?: No Positive Blood Alcohol level on Presentation? [PCS.BAL]: No Evidence of Increased Autonomic Activity (i.e. HR>120, tremor, sweating, agitation, nausea)?: No Result: 0 <Dorothy Mccormick - Last Filed: 12/21/24 18:58> Result: 0
--- NOTE | 2024-12-21 15:47 | W.EDPROG ---
Date of service: 12/21/24 Time of Service: 15:49 Medical Decision Making Report received from Concepcion Meehan, mary KUMAR. Please see her note for full HPI, ROS, PE, and lab interpretations. In short, Adrianna is a 69-year-old female who presented to the ED today for evaluation of hypertension. She was noted to have hyperglycemia with blood glucose 349 and anion gap of 17. She received 5 units insulin, 1 L IV fluids, and p.o. fluids as well. BMP rechecked at 1600, anion gap closed at that time. Tachycardia was noted to remain after fluids. I discussed history of tachycardia with patient, who reports that she is on a beta-nga. She ran out of her bisoprolol the day before yesterday, did not take her dose last night. Her evening dose was given today, she was observed for an hour and her heart rate returned to the 90s. She denied associated symptoms such as dizziness, chest pain, shortness of breath, or feeling unwell. Overall workup today reassuring, symptoms most likely due to dehydration and hyperglycemia. Recommend follow-up with PCP. Discharge Plan Disposition Patient Disposition: Home Condition: Stable Discharge Details Clinical Impression: Diabetes mellitus, Acute dehydration, CKD (chronic kidney disease) Primary Care Provider: Adin Garcia ED Provider: Dorothy Sheikh Home Meds and New Rx's Prescriptions: Continued acetaminophen [Tylenol] 325 mg tablet 325 mg PO ONCE PRN Lantus U-100 Insulin 100 unit/mL solution 80 unit SC QHS cholecalciferol (vitamin D3) 25 mcg (1,000 unit) capsule 25 mcg PO DAILY atorvastatin 40 mg tablet 40 mg PO DAILY cyclobenzaprine 10 mg tablet 10 mg PO HS citalopram 40 mg tablet 40 mg PO DAILY albuterol sulfate 90 mcg/actuation HFA aerosol inhaler 2 puff IH QID metformin 1,000 mg tablet 1,000 mg PO DAILY losartan 100 mg tablet 100 mg PO DAILY cetirizine 10 mg capsule 10 mg PO DAILY PRN bisoprolol fumarate 10 mg tablet 10 mg PO DAILY amlodipine 10 mg tablet 10 mg PO DAILY omeprazole 20 mg capsule,delayed release(DR/EC) 20 mg PO DAILY PRN bismuth subsalicylate 262 mg/15 mL suspension 524 mg PO Q30-60M PRN Rx Instructions: do not exceed 8 doses in a 24 hour period melatonin 5 mg capsule 5 mg PO PRN amitriptyline 50 mg tablet See Rx Instructions .ROUTE .COMPLEX Qty: 90 0RF Dose Instruction: TAKE ONE TABLET BY MOUTH AT BEDTIME Rx Instructions: TAKE ONE TABLET BY MOUTH AT BEDTIME Jardiance 10 mg tablet 10 mg PO DAILY Patient Comments: TAKE ONE TABLET BY MOUTH EVERY DAY Discharge Instructions Instructions: Dehydration, Adult (DC), Carb counting for adults with diabetes Additional Instructions: Please contact your doctor tomorrow and have blood pressure and your blood sugars reviewed. I have added on an A1c to your labs. Make sure you are drinking eight 8 ounce glasses of water daily. Recommend checking your blood glucose at home at least once a day and watching your diet. I did include some recommendations for diet diabetes. Your heart rate today was noted to be elevated, it is very important that you continue to take your bisoprolol and other medications as prescribed. Please return should develop your complaints including vomiting, recurrence of symptoms, or fever. Referrals: Adin Garcia [Primary Care Provider, Medicine] - 1 day
[2024-12-21 16:38] LABS: Anion Gap 10.1 mmol/L (3-11); BUN 25 mg/dL (7-18); CO2 22.9 mmol/L (21.0-32.0); Calcium 9.3 mg/dL (8.5-10.1); Chloride 102 mmol/L (98-107); Estimated GFR 40.22 (mL/min/1.73m2); Glucose 242 mg/dL (74-106); Potassium 4.5 mmol/L (3.5-5.1); Sodium 135 mmol/L (136-145)
[2024-12-21] MEDS: Bisoprolol 5 MG TAB 10 MG PO (17:06)
== END 2024-12-21 19:08 | disposition home or self-care (01) ==
PROVIDERS: Physician Assistant; Emergency Provider Nurse Practitioner Family; PCP Physician Assistant
DX: E11.22 Type 2 diabetes mellitus with diabetic chronic kidney disease (principal); E86.0 Dehydration
CPT/HCPCS: 99284 ×2; 36415; 36416; 82962; 96372; 00123; 80048; 80053; 82805; 93005; 96360; 99213; 81003; 81015; 83735; 84443; 84484; 85025; 93010; J1815

== ENCOUNTER 2025-01-06 16:08 | Outpatient (REF) | payer MEDICARE, SELFPAY ==
[2025-01-06 19:44] LABS: Microalb ug/mg Crea 68.1 ug/mg Cr
== END 2025-01-06 16:09 | disposition home or self-care (01) ==
LOC: NCHCN 16:08
PROVIDERS: PCP Physician Assistant; Visit Provider Physician Assistant
DX: I10 Essential (primary) hypertension (principal)
CPT/HCPCS: 82043; 82570